=== PATIENT | female | born 1935 | race Caucasian/White ===

== ENCOUNTER 2016-09-11 14:07 | Inpatient (IN) | payer OTHER ==
[~2016-09-11] VITALS: Ht 172.7 cm; Wt 103.2 kg
[2016-09-11] MEDS ORDERED: ONDANSETRON 4 MG INJ IV STA (14:43)
[2016-09-11] MEDS ORDERED: morphine 4 MG/ML VIAL IV STA (14:43)
[2016-09-11] MEDS ORDERED: SOD CHLORIDE 0.9% 1,000 ML IV ONE (15:30)
[2016-09-11 15:34] LABS: ADD SCAN DIFF NO
[2016-09-11 15:35] LABS: BASOPHIL # 0.1 10^3/ul (0.0-0.1); BASOPHILS % 0.8 % (0.0-2.0); EOSINOPHILS # 0.1 10^3/ul (0.0-0.5); EOSINOPHILS % 1.4 % (0.0-7.0); HEMATOCRIT 35.4 % (37.0-47.0); LYMPHOCYTES # 0.7 10^3/ul (0.8-2.9); LYMPHOCYTES % 10.3 % (15.0-51.0); MEAN CORPUSCULAR HEMOGLOBIN 35.2 pg (29.0-33.0); MEAN CORPUSCULAR HGB CONC 33.9 g/dl (32.0-37.0); MEAN CORPUSCULAR VOLUME 103.8 fl (82.0-101.0); MEAN PLATELET VOLUME 10.3 fl (7.4-10.4); MONOCYTE # 0.6 10^3/ul (0.3-0.9); MONOCYTES % 9.5 % (0.0-11.0); NEUTROPHILS % 77.5 % (39.0-77.0); PLATELET COUNT 219 10^3/UL (140-415); RED BLOOD COUNT 3.41 10^6/ul (4.20-5.40); RED CELL DISTRIBUTION WIDTH 15.3 % (11.5-14.5); WHITE BLOOD COUNT 6.4 10^3/ul (4.8-10.8)
[2016-09-11 15:45] LABS: INR 0.97; PROTIME 12.9 Sec (12.2-14.2)
[2016-09-11 15:46] LABS: PARTIAL THROMBOPLASTIN TIME 50.7 Sec (25.0-35.0)
[2016-09-11 15:50] LABS: ALBUMIN 3.8 g/dl (3.3-4.9)
[2016-09-11 15:51] LABS: POTASSIUM 3.9 mmol/L (3.5-5.1)
[2016-09-11 15:53] LABS: ALBUMIN/GLOBULIN RATIO 1.26; BILIRUBIN,INDIRECT 0.3 mg/dl (0-1.1); BILIRUBIN,TOTAL 0.3 mg/dl (0.2-1.3); CALCIUM 9.5 mg/dl (8.4-10.2); CREATININE 0.92 mg/dl (0.44-1.00); TOTAL PROTEIN 6.8 g/dl (6.1-8.1)
--- NOTE | 2016-09-11 15:55 | RADRPT ---
PROCEDURE: Chest x-ray CLINICAL INDICATION: Shortness of breath TECHNIQUE: Chest single view COMPARISON: None FINDINGS: There is a right IJ Port-A-Cath. Mild cardiomegaly seen.. The pulmonary vessels are normal in perry luisa. The lungs are clear. The costophrenic angles are sharp. The visualized bony thorax is unrema rkable. IMPRESSION: No acute cardiopulmonary disease. Mild cardiomegaly Port-A-Cath RPTAT: HH .Nixon Garner MD, Date Time Electronically viewed and signed by .Nixon Garner MD, on 09/11/2016 15:55 .W/
--- NOTE | 2016-09-11 16:27 | ERA ---
ER Documentation Chief Complaint Date/Time DATE: 09/11/16 TIME: 16:16 Chief Complaint lab work request HPI 81-year-old woman recently diagnosed with non-Hodgkin's lymphoma presents with 2 weeks of constant daily diarrhea and feels dehydrated. Patient recently completed a round of antibiotics, she states after the first dose of chemotherapy back in June she developed a very bad urinary tract infection which ultimately required IV antibiotics and inpatient management. She saw her hematology oncologist Dr. Song today who recommended initiation of chemotherapy and treatment with CHOP therapy. She denies blood or mucus in her stools, no vomiting, no chest pain or shortness of breath, no headache or blurry vision. Patient denies genitourinary symptoms at this time. ROS All systems reviewed and are negative except as per history of present illness. Allergies Allergies: Coded Allergies: diazepam (Verified Allergy, Mild, RASHES, FACIAL SWELLING, 09/11/16) PMhx/Soc Chronic pain syndrome, anxiety, non-Hodgkin's lymphoma diagnosed in June status post 1 round of chemotherapy History of Surgery: Yes ( C SECTION X 2, HYSTERECTOMY) Anesthesia Reaction: No Hx Neurological Disorder: No Hx Respiratory Disorders: No Hx Cardiac Disorders: No Hx Psychiatric Problems: No Hx Miscellaneous Medical Probl: Yes (CA LYMPHOMA, OVARIAN CA, PRE DM, CHEMOTHERAPY) Hx Alcohol Use: No Hx Substance Use: No Hx Tobacco Use: No Smoking Status: Never smoker FmHx Family History: No diabetes Physical Exam Vitals Vital Signs Date Time Temp Pulse Resp B/P Pulse Ox O2 Delivery O2 Flow Rate FiO2 09/11/16 14:14 95.8 83 18 178/78 96 Physical Exam GENERAL: Well-developed, well-nourished, dehydrated, afebrile HEENT: Dry mucous membranes, no cervical lymphadenopathy appreciated, pink conjunctiva, no cervical spine tenderness or step-off deformities, no goiter, no jaundice or icterus, extraocular movements intact without pain. No submandibular induration, and no pharyngeal erythema NEURO: Alert and oriented 3, cranial nerves II through XII intact bilaterally, pupils equal round reactive to light, no focal deficits or facial asymmetry, sensation intact distally Strength 5/5 in upper and lower extremities bilaterally CARDIAC: Regular rate and rhythm, no murmurs rubs or gallops LUNGS: Clear bilaterally no wheezing crackles or stridor ABDOMEN: Soft nontender, no guarding, no rigidity, no rebound, no psoas sign no obturator sign. Normoactive bowel sounds SKIN: Warm and dry to touch, no abrasions, contusions, or hematomas, no lacerations, no ecchymosis, no target lesions, and without ulcers EXTREMITIES: No clubbing cyanosis or edema, calves are bilaterally symmetrical, no Homans sign, no popliteal cord sign. Distal pulses equal and bilateral PSYCH: Normal affect without agitation or irritability Result Diagram: 09/11/16 1500 09/11/16 1500 Results 24 hrs Laboratory Tests Test 09/11/16 15:00 White Blood Count 6.410^3/ul Red Blood Count 3.4110^6/ul Hemoglobin 12.0g/dl Hematocrit 35.4% Mean Corpuscular Volume 103.8fl Mean Corpuscular Hemoglobin 35.2pg Mean Corpuscular Hemoglobin Concent 33.9g/dl Red Cell Distribution Width 15.3% Platelet Count 18899^3/UL Mean Platelet Volume 10.3fl Neutrophils % 77.5% Lymphocytes % 10.3% Monocytes % 9.5% Eosinophils % 1.4% Basophils % 0.8% Nucleated Red Blood Cells % 0.0/100WBC Neutrophils # 5.010^3/ul Lymphocytes # 0.710^3/ul Monocytes # 0.610^3/ul Eosinophils # 0.110^3/ul Basophils # 0.110^3/ul Nucleated Red Blood Cells # 0.010^3/ul Prothrombin Time 12.9Sec Prothrombin Time Ratio 1.0 INR International Normalized Ratio 0.97 Activated Partial Thromboplast Time 50.7Sec Sodium Level 141mmol/L Potassium Level 3.9mmol/L Chloride Level 103mmol/L Carbon Dioxide Level 27mmol/L Anion Gap 15 Blood Urea Nitrogen 13mg/dl Creatinine 0.92mg/dl Glucose Level 117mg/dl Calcium Level 9.5mg/dl Total Bilirubin 0.3mg/dl Direct Bilirubin 0.00mg/dl Indirect Bilirubin 0.3mg/dl Aspartate Amino Transf (AST/SGOT) 23IU/L Alanine Aminotransferase (ALT/SGPT) 24IU/L Alkaline Phosphatase 102IU/L Lactate Dehydrogenase 430IU/L Total Protein 6.8g/dl Albumin 3.8g/dl Globulin 3.00g/dl Albumin/Globulin Ratio 1.26 Current Medications Medications (Trade) Dose Ordered Sig/Adilene Route PRN Reason Start Time Stop Time Status Last Admin Dose Admin Morphine Sulfate (morphine) 4 mg ONCE STAT IV 09/11/16 14:43 09/11/16 14:47 DC 09/11/16 15:03 Ondansetron HCl 4 mg 4 mg ONCE STAT IV 09/11/16 14:43 09/11/16 14:47 DC 09/11/16 15:03 Sodium Chloride (NS) 1,000 ml @ 1,000 mls/hr Q1H ONCE IV 09/11/16 15:30 09/11/16 16:29 09/11/16 15:25 Procedures/MDM IV line was established patient was placed on surveillance monitor rhythm strip revealed a sinus rhythm at about 80 bpm with upright P and T waves. Patient was afebrile. I administered 1 L normal saline intravenously and Zofran 4 mg IV. CBC and electrolytes were unremarkable, liver function tests were normal. Urinalysis has been ordered results are pending I will follow-up. If positive she will require treatment with IV antibiotics. One AP view of the chest performed, read by me reveals no acute infiltrates, normal mediastinum, sharp costophrenic and cardiac borders, no air under the diaphragm. Otherwise unremarkable chest x-ray. CT scan of the abdomen and pelvis has been ordered results are pending I will follow-up. C. difficile toxin has been ordered results are pending I will follow-up. Patient will be admitted to [facility] for continued medical management, IV hydration, and possible emergent chemotherapy. Departure Diagnosis: Primary Impression: Non Hodgkin's lymphoma Qualified Code: C85.91 - Non-Hodgkin lymphoma of lymph nodes of neck, unspecified non-Hodgkin lymphoma type Additional Impressions: Dehydration Infectious colitis Intractable diarrhea Condition: ADIS Gaming MD Sep 11, 2016 16:27
[2016-09-11] MEDS ORDERED: CEFTRIAXONE 1 GM/50 ML (PMX) 50 ML IVPB ONE (17:00)
[2016-09-11] MEDS ORDERED: DOCUSATE SODIUM 100 MG CAP PO PRN (17:00)
[2016-09-11] MEDS ORDERED: ONDANSETRON 4 MG INJ IV PRN (17:00)
[2016-09-11] MEDS ORDERED: BISACODYL 10 MG SUPP PR PRN (17:00)
[2016-09-11] MEDS ORDERED: NACL 0.9% 3 ML SYG IV SCH (17:00)
[2016-09-11] MEDS ORDERED: MAGNESIUM HYDROXIDE 30ML CUP PO PRN (17:00)
[2016-09-11] MEDS ORDERED: ATEN-51 PO (17:08)
[2016-09-11] MEDS ORDERED: ALLO300T2 PO (17:09)
[2016-09-11] MEDS ORDERED: LEVO175T6 PO (17:10)
[2016-09-11] MEDS ORDERED: PIOG15TA21 PO (17:11)
[2016-09-11] MEDS ORDERED: OMEP20CA16 PO (17:11)
[2016-09-11] MEDS ORDERED: FLUO40CA PO (17:12)
[2016-09-11] MEDS ORDERED: FLUO20CA22 PO (17:12)
[2016-09-11] MEDS ORDERED: SIMV40TA2 PO (17:15)
[2016-09-11] MEDS ORDERED: GLUCOSE GEL 15 GRAM TUBE BUCCAL PRN (18:00)
[2016-09-11] MEDS ORDERED: GLUCOSE GEL 15 GRAM TUBE PO PRN ×2 (18:00)
[2016-09-11] MEDS: INSULIN ASPART [NOVOLOG] 3 ML PEN SC SCH ×2 (18:00→21:00)
[2016-09-11] MEDS ORDERED: GLUCAGON 1 MG INJ IM PRN (18:00)
[2016-09-11] MEDS ORDERED: DEXTROSE 50% 50 ML SYRINGE IV PRN ×2 (18:00)
--- NOTE | 2016-09-11 18:21 | RADRPT ---
PROCEDURE: CT Abdomen and Pelvis without contrast. CLINICAL INDICATION: Abdominal and pelvic pain. Diarrhea for 2 weeks. TECHNIQUE: CT scan of the abdomen and pelvis without contrast was performed. Coronal and sagittal reformatted images were obtained from the axial source images. Images were reviewed on a high-[employer] PACS workstation. Total exam DLP is 1260.62 mGy-cm. CTDIvol is 21.23 mGy. One or more of the following dose reduction techniques were used: Automated exposure control, adjustment of the mA and/ or kV according to patient size, use of iterative reconstruction technique. COMPARISON: None. FINDINGS: There is mild bronchiectasis at both lung bases posteriorly. The lung bases are otherwise normal. There is no pleural effusion or pericardial effusion. The liver is cirrhotic with a nodular surface and relative enlargement of the left lobe. There is n o definite focal hepatic lesion. The gallbladder and bile ducts are normal. The spleen is mildly enlarged. There is no focal splenic lesion. Both adrenals are normal with no enlargement or mass. The pancreas is unremarkable with no mass or evidence of pancreatitis. There is no renal mass or hydronephrosis. There is no renal calculus or ureteral calculus. The abdominal aorta is not dilated. There is calcification in the aorta consistent with atheroscler osis. There is a retroaortic left renal vein, a normal variant. There is no retroperitoneal lymphadenopathy or mass. There is no pelvic lymphadenopathy or mass. The bladder and distal ureters are normal. The periappendiceal region is unremarkable with no evidence of appendicitis. There is diverticulosis of the sigmoid colon without evidence of diverticulitis. The bowel and mese ntery are otherwise normal. There is no free fluid or free gas. There are degenerative changes of the spine. There is no acute fracture or lytic lesion. There are old compression fractures of superior endplate of T12, L1, and L3. IMPRESSION: 1. Mild bronchiectasis at the lung bases posteriorly. 2. Cirrhotic liver. 3. Mild splenomegaly. 4. Atherosclerosis. 5. Retroaortic left renal vein, a normal variant. 6. Diverticulosis of the sigmoid colon with no evidence of diverticulitis. 7. Degenerative changes of the spine. 8. Old compression fractures of T12, L1, and L3 vertebrae. 9. No other significant abnormality. RPTAT: QQ .Anselmo Lombardi MD, MD Date Time Electronically viewed and signed by .Anselmo Lombardi MD, on 09/11/2016 18:20 .R/
[2016-09-11] MEDS: morphine 2 MG INJ IV PRN (18:43)
[2016-09-11] MEDS: SOD CHLORIDE 0.9% 1,000 ML IV SCH (18:49)
[2016-09-11] MEDS ORDERED: ATENOLOL 25 MG TAB PO ONE (19:30)
[2016-09-11 19:31] VITALS: TEMP 98.3
[2016-09-11 20:54] VITALS: BP 180/77; RESP 20
--- NOTE | 2016-09-11 20:57 | HP ---
DATE OF ADMISSION: 09/11/2016 PRIMARY CARE ONCOLOGIST: Dr. Hellen Song. CHIEF COMPLAINT ON ADMISSION: Generalized weakness and diarrhea. HISTORY OF PRESENT ILLNESS: This is a 81-year-old female apparently with history of non-Hodgkin lymphoma who is currently on chemotherapy, but behind on chemotherapy, and also history of recurrent UTIs. For the past few months, she has been on multiple antibiotics apparently and seems to have resolved as of now. Also has been having diarrhea intermittently for the past couple of months. The patient reports that she has been using Imodium and her last bowel movement was 24 hours ago, was definitely more formed than before. She denies any nausea, vomiting, hematemesis, melena, or hematochezia, but she does report decreased appetite over the past few weeks. Her p.o. intake has decreased, but she does force herself to eat. She has been afebrile. She denies any specific suprapubic abdominal pain or generalized abdominal pain; however, she does describe generalized pain. She cannot really pinpoint exactly when, where she has been taking [place] as needed. Apparently she had an episode of fall yesterday, according to the daughter at the bedside. It is fairly difficult to get a history from the patient, as I am being interrupted constantly by the daughter at the bedside who is very impatient, refused to give information, and keeps repeating that it is in the chart already or keeps repeating that the patient is ill and needs to be admitted. When I ask her specific symptoms, she responds with a derogatory term and just asks for me to go look the chart up or keeps repeating that the patient is ill. The patient herself is very pleasant. She seems to be a little forgetful, but able to give most of the information in an accurate matter. At this point, she is on IV fluids. Her labs are fairly stable and within normal. She does not seem to be having an acute infection currently, but given her previous multiple urinary tract infections and these episodes of diarrhea, she will have her stool checked along with a UA and urine culture. CAT scan of the abdomen and pelvis has been ordered and is still pending. I have discussed this patient with Dr. Song who is familiar with them. Apparently her last chemotherapy had to be delayed due to episodes of urinary tract infection requiring IV antibiotics. At this point, she had a planned chemotherapeutic dose due and it is being debated at this point if she needs it inpatient versus outpatient. Apparently, with her last chemotherapy she had an episode of confusion or some side effects reported then, although the patient does not remember. She is being admitted to a medical/surgical bed with hematology evaluation in the morning. If it seems like she needs chemotherapy urgently, at that point, she may end up having it inpatient. If not, she will be hydrated overnight and discharged home. ALLERGIES: VALIUM. PAST MEDICAL HISTORY: Significant for: 1. Non-Hodgkin's lymphoma, apparently according to Dr. Song, fairly aggressive. 2. Previous history of ovarian cancer years ago, according to patient. 3. Hypothyroidism. 4. Hyperlipidemia. 5. Episode of recurrent urinary tract infection. 6. Hypertension. 7. Diabetes mellitus. 8. Major depressive disorder versus anxiety disorder. PAST SURGICAL HISTORY: Status post Port-A-Cath placement. REVIEW OF SYSTEMS: Difficult to obtain from the patient or the patient's family. She is very reluctant to give any information. SOCIAL HISTORY: The patient lives with family. Has no history of smoking or drinking. OUTPATIENT MEDICATIONS: 1. Atenolol 25 mg p.o. daily. 2. Zocor 40 mg p.o. at bedtime. 3. Fluoxetine 60 mg p.o. daily. 4. Omeprazole 20 mg p.o. daily. 5. Levothyroxine 175 mcg p.o. daily. 6. Pioglitazone 15 mg p.o. daily. 7. Allopurinol 300 mg p.o. daily. 8. Of note, the patient has been on multiple series of antibiotics before for apparently recurrent urinary tract infection. PHYSICAL EXAMINATION: VITAL SIGNS: Temperature is 98.5, heart rate of 83, respiratory rate 18, blood pressure 178/78. The patient is saturating 96% on room air. GENERAL: She is alert and oriented x4. She is in no acute distress. She is morbidly obese. HEENT: Pupils are equally round and reactive to light. Extraocular muscles are intact. Anicteric sclerae. NECK: No JVD, no thyromegaly noted. HEART: Regular rate and rhythm. No murmur, rubs, or gallops. LUNGS: Clear to auscultation bilaterally. ABDOMEN: Soft, nontender, nondistended. Bowel sounds are present. I did palpate fairly deeply. The patient did not complain of pain. EXTREMITIES: No edema, clubbing, or cyanosis, but the patient complained of numbness of her feet. NEUROLOGIC: The patient's complaint of generalized weakness at this point 4/5 muscle strength and numbness of her feet bilaterally. She also complains of pain on her left upper extremity, status post fall, motor strength is 4+/5. Gait will be tested with physical therapy in a.m. LABORATORY DATA: White blood cell count 6.4, hemoglobin 12.0, hematocrit 35.4, platelet count of 219. Chemistry with a sodium of 141, potassium 3.9, chloride 102, bicarbonate 27, BUN 13, creatinine 0.93, glucose 117, calcium 9.5. AST 23 , ALT 24, alkaline phosphatase 102. LDH is 430. Total protein 6.8, albumin 3.8. INR is 0.97, PT 12.9, PTT 50.7. Urinalysis is still pending. C. diff toxin is pending. RADIOLOGICAL DATA: 1. Chest x-ray shows no acute cardiopulmonary disease, mild cardiomegaly, and a Port-A-Cath in place. 2. CAT scan of the abdomen and pelvis is still pending. ASSESSMENT AND PLAN: This is a 81-year-old female with: 1. Reported dehydration and diarrhea for 2 weeks. When I talked to the patient , at this point, she seems to be pointing and reporting that her diarrhea is resolving and is more formed stools. She does not have any other alarming symptoms as abdominal pain. White count is within normal. She is tolerating p.o., but has decreased appetite. Will continue IV fluids overnight with reevaluation in the morning. Follow up stool Clostridium difficile. Follow up CAT scan of the abdomen and pelvis. I have placed her on low-cholesterol, low- fat diet overnight. 2. Non-Hodgkin lymphoma, according to pete Velazco. The patient is due for chemotherapy at this point. She will evaluate the patient in the a.m. and decide if she needs chemotherapy at this time versus later on as an outpatient. 3. Hyperlipidemia. Check fasting lipid panel. Continue statin therapy. 4. Hypothyroidism. Check TSH and free T4. Continue Synthroid. 5. Major depressive disorder versus other psychiatric illness. Continue fluoxetine. 6. Hypertension. Continue atenolol. 7. Diabetes mellitus. The patient is on Actos. Will check a hemoglobin A1c in a.m. and sliding scale insulin. Hold Actos during this admission. 8. Prophylaxis. Lovenox for deep vein thrombosis prophylaxis and Protonix for gastrointestinal prophylaxis. DISPOSITION: The patient is admitted on medical surgical bed for now with possible discharge in the next 24 hours if there is no plan for further treatment and CAT scan is within normal. However, if it seems like the patient needs to start chemotherapy inpatient, we will reevaluate her admission at that point. Dictated By: JESUS DE LA ROSA/HOLLIS Conf#: [id number] DID#: [id number] MTDD
[2016-09-11] MEDS: ATORVASTATIN 20 MG TAB PO SCH (21:00)
[2016-09-11] MEDS: HYDROCODONE/APAP (5/325) TAB PO PRN (22:19)
[2016-09-11 22:30] VITALS: BP 117/56; PULSE 81; RESP 16
[2016-09-12] MEDS: SOD CHLORIDE 0.9% 1,000 ML IV SCH ×3 (02:36→21:30)
[2016-09-12 05:13] LABS: ADD SCAN DIFF NO
[2016-09-12 05:24] LABS: BASOPHILS % 0.6 % (0.0-2.0); EOSINOPHILS # 0.1 10^3/ul (0.0-0.5); EOSINOPHILS % 1.8 % (0.0-7.0); HEMATOCRIT 34.8 % (37.0-47.0); HEMOGLOBIN 11.6 g/dl (12.0-16.0); LYMPHOCYTES # 0.7 10^3/ul (0.8-2.9); LYMPHOCYTES % 12.7 % (15.0-51.0); MEAN CORPUSCULAR HEMOGLOBIN 35.4 pg (29.0-33.0); MEAN CORPUSCULAR HGB CONC 33.3 g/dl (32.0-37.0); MEAN CORPUSCULAR VOLUME 106.1 fl (82.0-101.0); MONOCYTE # 0.5 10^3/ul (0.3-0.9); MONOCYTES % 9.2 % (0.0-11.0); NEUTROPHIL # 3.9 10^3/ul (1.6-7.5); NEUTROPHILS % 75.3 % (39.0-77.0); PLATELET COUNT 175 10^3/UL (140-415); RED BLOOD COUNT 3.28 10^6/ul (4.20-5.40); RED CELL DISTRIBUTION WIDTH 15.3 % (11.5-14.5); WHITE BLOOD COUNT 5.1 10^3/ul (4.8-10.8)
[2016-09-12] MEDS: LEVOTHYROXINE 175 MCG TAB PO SCH (06:26)
[2016-09-12] MEDS: PANTOPRAZOLE (EC) 40 MG TAB PO SCH (06:26)
[2016-09-12] MEDS: HYDROCODONE/APAP (5/325) TAB PO PRN ×3 (06:38→21:29)
[2016-09-12 06:41] VITALS: Ht 172.7 cm; Wt 103.2 kg
[2016-09-12 07:35] LABS: ALBUMIN 3.8 g/dl (3.3-4.9)
[2016-09-12 07:36] LABS: POTASSIUM 3.6 mmol/L (3.5-5.1)
[2016-09-12 07:38] LABS: BILIRUBIN,INDIRECT 0.2 mg/dl (0-1.1); BILIRUBIN,TOTAL 0.2 mg/dl (0.2-1.3); CREATININE 0.88 mg/dl (0.44-1.00)
[2016-09-12 07:39] LABS: ALBUMIN/GLOBULIN RATIO 1.31; PHOSPHORUS 3.7 mg/dl (2.5-4.9); TOTAL PROTEIN 6.7 g/dl (6.1-8.1)
[2016-09-12 07:40] LABS: CHOL/HDL RATIO 2.2 RATIO; MAGNESIUM 1.3 mg/dl (1.7-2.5)
[2016-09-12] MEDS: INSULIN ASPART [NOVOLOG] 3 ML PEN SC SCH ×4 (07:50→21:00)
[2016-09-12] MEDS ORDERED: ENOXAPARIN 40 MG/0.4 ML SYG SC SCH (09:00)
[2016-09-12 09:11] VITALS: BP 135/69; RESP 18
[2016-09-12] MEDS: ATENOLOL 25 MG TAB PO SCH (10:02)
[2016-09-12] MEDS: FLUOXETINE 20 MG CAP PO SCH (10:03)
[2016-09-12] MEDS: ALLOPURINOL 300 MG TAB PO SCH (10:05)
--- NOTE | 2016-09-12 10:52 | PN ---
Date/Time of Note Date/Time of Note DATE: 09/12/16 TIME: 10:25 Assessment/Plan VTE Prophylaxis VTE Prophylaxis Intervention: LMWH Lines/Catheters IV Catheter Type (from Nrs): Peripheral IV Assessment/Plan Assessment/Plan 81-year-old female: 1. Dehydration and diarrhea for 2 weeks per patient. No diarrhea so far, stool c diff pending Tolerating po and remains stable CAT scan of the abdomen and pelvis wihth cirrhosis and mild splenomegaly, otherwise no acute findings 2. Non-Hodgkin lymphoma, according to Dr. Song, aggressive. The patient is due for chemotherapy at this point. Planning for chemo so far with expected stay of 2 to 3 days 3. Hyperlipidemia. Continue statin therapy. 4. Hypothyroidism. Continue Synthroid. 5. Major depressive disorder versus other psychiatric illness. Continue fluoxetine. 6. Hypertension. Continue atenolol. 7. Diabetes mellitus. A1c pending and continue sliding scale insulin for now. Hold Actos during this admission. Prophylaxis. Lovenox for deep vein thrombosis prophylaxis and Protonix for gastrointestinal prophylaxis. DISPOSITION: To start chemotherapy per Dr Song, we will reevaluate her admission if otherwise. Subjective 24 Hr Interval Summary Free Text/Dictation Patient apparently using a small wheelchair at home, chronic weakness PT eval today ? Chemo Exam/Review of Systems Vital Signs Vitals Vital Signs Date Time Temp Pulse Resp B/P Pulse Ox O2 Delivery O2 Flow Rate FiO2 09/12/16 09:11 97.6 87 18 135/69 90 09/11/16 19:31 Room Air Intake and Output 09/11/16 09/11/16 09/12/16 15:00 23:00 07:00 Intake Total 1450 ml Balance 1450 ml Exam Constitutional: alert, obese, oriented, well developed Respiratory: clear to auscultation, normal air movement Cardiovascular: nl pulses, regular rate and rhythm Gastrointestinal: non-tender, soft Musculoskeletal: nl extremities to inspection Extremities: normal pulses, other (no edema, clubbing or cyanosis ) 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8 Basophils % 0.8 0.6 Nucleated Red Blood Cells % 0.0 0.0 Neutrophils # 5.0 3.9 Lymphocytes # 0.7 L 0.7 L Monocytes # 0.6 0.5 Eosinophils # 0.1 0.1 Basophils # 0.1 0.0 Nucleated Red Blood Cells # 0.0 0.0 Prothrombin Time 12.9 Prothrombin Time Ratio 1.0 INR International Normalized Ratio 0.97 Activated Partial Thromboplast Time 50.7 H Sodium Level 141 140 Potassium Level 3.9 3.6 Chloride Level 103 105 Carbon Dioxide Level 27 26 Anion Gap 15 13 Blood Urea Nitrogen 13 10 Creatinine 0.92 0.88 Glucose Level 117 107 Calcium Level 9.5 9.0 Total Bilirubin 0.3 0.2 Direct Bilirubin 0.00 0.00 Indirect Bilirubin 0.3 0.2 Aspartate Amino Transf (AST/SGOT) 23 24 Alanine Aminotransferase (ALT/SGPT) 24 25 Alkaline Phosphatase 102 97 Lactate Dehydrogenase 556 Total Protein 6.8 6.7 Albumin 3.8 3.8 Globulin 3.00 2.90 Albumin/Globulin Ratio 1.26 1.31 Thyroid Stimulating Hormone (TSH) 1.040 Free Thyroxine 1.96 H Bedside Glucose 113 111 Phosphorus Level 3.7 Magnesium Level 1.3 L Triglycerides Level 164 H Cholesterol Level 142 LDL Cholesterol, Calculated 46 HDL Cholesterol 63 Cholesterol/HDL Ratio 2.2 Medications Medications Current Medications Sodium Chloride (NS) 1,000 ml @ 100 mls/hr Q10H IV Last administered on t 02:36; Admin Dose 100 MLS/HR; Start 09/11/16 at 16:52 Ondansetron HCl (Zofran Inj) 4 mg Q6H PRN IV NAUSEA AND/OR VOMITING; Start at 17:00 Acetaminophen (Tylenol Tab) 650 mg Q6H PRN PO PAIN LEVEL 1-3 OR FEVER; Start at 17:00 Acetaminophen/ Hydrocodone Bitart ([place] (5/325)) 1 tab Q6H PRN PO MODERATE PAIN LEVEL 4-6; Start 09/11/16 at 17:00 Acetaminophen/ Hydrocodone Bitart ([place] (5/325)) 2 tab Q6H PRN PO SEVERE PAIN LEVEL 7-10 Last administered on 09/12/16 06:38; Admin Dose 2 TAB; Start at 17:00 Morphine Sulfate (morphine) 2 mg Q4H PRN IV SEVERE PAIN LEVEL 7-10 Last administered on 09/11/16 18:43; Admin Dose 2 MG; Start 09/11/16 at 17:00 Docusate Sodium (Colace) 100 mg Q12H PRN PO CONSTIPATION Last administered on 22:18; Admin Dose 100 MG; Start 09/11/16 at 17:00 Magnesium Hydroxide (Milk Of Mag) 30 ml DAILY PRN PO CONSTIPATION; Start at 17:00 Bisacodyl (Dulcolax Supp) 10 mg DAILY PRN [place] CONSTIPATION; Start 09/11/16 at 17 :00 Pantoprazole (Protonix Tab) 40 mg DAILY@06 PO Last administered on 09/12/16 06 :26; Admin Dose 40 MG; Start 09/12/16 at 06:00 Enoxaparin Sodium (Lovenox) 40 mg DAILY SC Last administered on 09/12/16 10:01 ; Admin Dose 40 MG; Start 09/12/16 at 09:00 Allopurinol (Zyloprim) 300 mg DAILY PO Last administered on 09/12/16 10:05; Admin Dose 300 MG; Start 09/12/16 at 09:00 Atenolol (Tenormin) 25 mg DAILY PO Last administered on 09/12/16 10:02; Admin Dose 25 MG; Start 09/12/16 at 09:00 Atorvastatin Calcium (Lipitor) 20 mg DAILY@21 PO ; Start 09/11/16 at 21:00 Fluoxetine HCl (Prozac) 60 mg DAILY PO Last administered on 09/12/16 10:03; Admin Dose 60 MG; Start 09/12/16 at 09:00 Miscellaneous Information 1 ea NOTE XX ; Start 09/11/16 at 18:00 Glucose (Glutose) 15 gm Q15M PRN PO DECREASED GLUCOSE; Start 09/11/16 at 18:00 Glucose (Glutose) 22.5 gm Q15M PRN PO DECREASED GLUCOSE; Start 09/11/16 at 18: 00 Dextrose (D50w Syringe) 25 ml Q15M PRN IV DECREASED GLUCOSE; Start 09/11/16 at 18:00 Dextrose (D50w Syringe) 50 ml Q15M PRN IV DECREASED GLUCOSE; Start 09/11/16 at 18:00 Glucagon (Glucagen) 1 mg Q15M PRN IM DECREASED GLUCOSE; Start 09/11/16 at 18:00 Glucose (Glutose) 15 gm Q15M PRN BUCCAL DECREASED GLUCOSE; Start 09/11/16 at 18 :00 Influenza Virus Vaccine (Fluzone) 0.5 ml ONCE ONCE IM* ; Start 09/13/16 at 09:00 ; Stop 09/13/16 at 09:01 Procedures Procedures PROCEDURE: CT Abdomen and Pelvis without contrast. CLINICAL INDICATION: Abdominal and pelvic pain. Diarrhea for 2 weeks. TECHNIQUE: CT scan of the abdomen and pelvis without contrast was performed. Coronal and sagittal reformatted images were obtained from the axial source images. Images were reviewed on a high-resolution PACS workstation. Total exam DLP is 1260.62 mGy-cm. CTDIvol is 21.23 mGy. One or more of the following dose reduction techniques were used: Automated exposure control, adjustment of the mA and/or kV according to patient size, use of iterative reconstruction technique. COMPARISON: None. FINDINGS: There is mild bronchiectasis at both lung bases posteriorly. The lung bases are otherwise normal. There is no pleural effusion or pericardial effusion. The liver is cirrhotic with a nodular surface and relative enlargement of the left lobe. There is no definite focal hepatic lesion. The gallbladder and bile ducts are normal. The spleen is mildly enlarged. There is no focal splenic lesion. Both adrenals are normal with no enlargement or mass. The pancreas is unremarkable with no mass or evidence of pancreatitis. There is no renal mass or hydronephrosis. There is no renal calculus or ureteral calculus. The abdominal aorta is not dilated. There is calcification in the aorta consistent with atherosclerosis. There is a retroaortic left renal vein, a normal variant. There is no retroperitoneal lymphadenopathy or mass. There is no pelvic lymphadenopathy or mass. The bladder and distal ureters are normal. The periappendiceal region is unremarkable with no evidence of appendicitis. There is diverticulosis of the sigmoid colon without evidence of diverticulitis. The bowel and mesentery are otherwise normal. There is no free fluid or free gas. There are degenerative changes of the spine. There is no acute fracture or lytic lesion. There are old compression fractures of superior endplate of T12, L1, and L3. IMPRESSION: 1. Mild bronchiectasis at the lung bases posteriorly. 2. Cirrhotic liver. 3. Mild splenomegaly. 4. Atherosclerosis. 5. Retroaortic left renal vein, a normal variant. 6. Diverticulosis of the sigmoid colon with no evidence of diverticulitis. 7. Degenerative changes of the spine. 8. Old compression fractures of T12, L1, and L3 vertebrae. 9. No other significant abnormality. RPTAT: QQ JESUS EUBANKS Sep 12, 2016 10:36
[2016-09-12] MEDS ORDERED: ALBUTEROL/IPRATROPIUM (NEB) 3 ML AMP HHN PRN (11:00)
[2016-09-12] MEDS ORDERED: MAGNESIUM SULFATE 2 GM/50 ML 50 ML IVPB SCH (11:30)
[2016-09-12] MEDS: DIPHENHYDRAMINE 25 MG CAP PO PRN (13:11)
--- NOTE | 2016-09-12 14:50 | CONS ---
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 Pt now presents with weakness, body pain and shortness of breath that is most likely secondary to her highly proliferative lymphoma that is currently progressing. Given that she is due for her chemotherapy, we will initiate her next dose of chemotherapy at this time in attempts to control this highly proliferative disease. # DLBCL -Pt to start Rituxan + Bendamustine to be given when meds arrive -Rituxan 750 mg IV day 1 -Bendamustine 240 mg IV day1 and day 2. -Rituxan may start first and bendamustine can be given the next day if Rituxan is available earlier -will check Hep panel as patient will be getting Rituxan. need to prevent hep B reactivation # Tumor lysis ppx given patient has a highly proliferative lymphoma -start allopurinol 300mg q dy -continue with NS hydration #Pain -[place] ok as needed for pain # Depression -cont Prozac Approximately 40 min were spent at patient's bedside and in coordination of her care Problems: Consultation Date/Type/Reason Admit Date/Time Sep 11, 2016 at 16:03 Date of Consultation: Sep 12, 2016 Type of Consultation: hematology Reason for Consultation diffuse large b cell lymphoma Referring Provider: JESUS EUBANKS Hx of Present Illness 81 yo who first began to feel neck lymphadenopathy on the left side of her neck in 03/2016. PT became bedridden with profound weakness. 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 PT has since started chemotherapy in late July where she had a moderate reaction to Rituxan with shortness of breath, chills and mild fevers. She received Rituxan and Bendamustine at that time. She was supposed to start chemotherapy in our office , but now she presents to the [facility] ER with Shortness of breath, severe body pains and worsening weakness. She is currently over due from her chemotherapy and feels this is the cause of her symptoms. Constitutional: chills, poor po Eyes: no complaints ENT: no complaints Respiratory: shortness of breath Cardiovascular: no complaints Gastrointestinal: no complaints Musculoskeletal: back pain, bone/joint pain Skin: no complaints Past Medical History Hypertension Depression Diabetes Mellitus Osteoarthritis Obesity Ovaria Cancer Hypothyroidism Hypercholesterolemia Past Surgical History Ex lap ALEXANDRE BSO Cosmetic Surgery on Face Family History Significant Family History: no pertinent family hx Social History Alcohol Use: none Smoking Status: Former smoker Drug Use: none Exam/Review of Systems Vital Signs Vitals Vital Signs Date Time Temp Pulse Resp B/P Pulse Ox O2 Delivery O2 Flow Rate FiO2 09/12/16 11:55 75 18 97 09/12/16 09:11 97.6 135/69 09/11/16 19:31 Room Air Intake and Output 09/11/16 09/11/16 09/12/16 15:00 23:00 07:00 Intake Total 1450 ml Balance 1450 ml Exam Constitutional: distress, frail Psych: anxiety, depression Head: normocephalic Eyes: nl conjunctiva ENMT: nl external ears & nose Neck: supple Respiratory: clear to auscultation, normal air movement Cardiovascular: regular rate and rhythm Gastrointestinal: soft Musculoskeletal: nl extremities to inspection Results Result Diagram: 09/12/16 0440 09/12/16 0440 Results 24 hrs Laboratory Tests Test 09/11/16 15:00 09/11/16 21:33 09/12/16 04:40 09/12/16 07:54 White Blood Count 6.4 5.1 # Red Blood Count 3.41 L 3.28 L Hemoglobin 12.0 11.6 L Hematocrit 35.4 L 34.8 L Mean Corpuscular Volume 103.8 H 106.1 H Mean Corpuscular Hemoglobin 35.2 H 35.4 H Mean Corpuscular Hemoglobin Concent 33.9 33.3 Red Cell Distribution Width 15.3 H 15.3 H Platelet Count 219 175 # Mean Platelet Volume 10.3 10.0 Neutrophils % 77.5 H 75.3 Lymphocytes % 10.3 L 12.7 L Monocytes % 9.5 9.2 Eosinophils % 1.4 1.8 Basophils % 0.8 0.6 Nucleated Red Blood Cells % 0.0 0.0 Neutrophils # 5.0 3.9 Lymphocytes # 0.7 L 0.7 L Monocytes # 0.6 0.5 Eosinophils # 0.1 0.1 Basophils # 0.1 0.0 Nucleated Red Blood Cells # 0.0 0.0 Prothrombin Time 12.9 Prothrombin Time Ratio 1.0 INR International Normalized Ratio 0.97 Activated Partial Thromboplast Time 50.7 H Sodium Level 141 140 Potassium Level 3.9 3.6 Chloride Level 103 105 Carbon Dioxide Level 27 26 Anion Gap 15 13 Blood Urea Nitrogen 13 10 Creatinine 0.92 0.88 Glucose Level 117 107 Calcium Level 9.5 9.0 Total Bilirubin 0.3 0.2 Direct Bilirubin 0.00 0.00 Indirect Bilirubin 0.3 0.2 Aspartate Amino Transf (AST/SGOT) 23 24 Alanine Aminotransferase (ALT/SGPT) 24 25 Alkaline Phosphatase 102 97 Lactate Dehydrogenase 556 Total Protein 6.8 6.7 Albumin 3.8 3.8 Globulin 3.00 2.90 Albumin/Globulin Ratio 1.26 1.31 Thyroid Stimulating Hormone (TSH) 1.040 Free Thyroxine 1.96 H Bedside Glucose 113 111 Hemoglobin A1c 5.3 Phosphorus Level 3.7 Magnesium Level 1.3 L Triglycerides Level 164 H Cholesterol Level 142 LDL Cholesterol, Calculated 46 HDL Cholesterol 63 Cholesterol/HDL Ratio 2.2 Test 09/12/16 12:05 Bedside Glucose 118 Medications Medications Current Medications Sodium Chloride (NS) 1,000 ml @ 100 mls/hr Q10H IV Last administered on 13:10; Admin Dose 100 MLS/HR; Start 09/11/16 at 16:52 Ondansetron HCl (Zofran Inj) 4 mg Q6H PRN IV NAUSEA AND/OR VOMITING; Start at 17:00 Acetaminophen (Tylenol Tab) 650 mg Q6H PRN PO PAIN LEVEL 1-3 OR FEVER; Start at 17:00 Acetaminophen/ Hydrocodone Bitart ([place] (5/325)) 1 tab Q6H PRN PO MODERATE PAIN LEVEL 4-6; Start 09/11/16 at 17:00 Acetaminophen/ Hydrocodone Bitart ([place] (5/325)) 2 tab Q6H PRN PO SEVERE PAIN LEVEL 7-10 Last administered on 09/12/16 06:38; Admin Dose 2 TAB; Start at 17:00 Morphine Sulfate (morphine) 2 mg Q4H PRN IV SEVERE PAIN LEVEL 7-10 Last administered on 09/11/16 18:43; Admin Dose 2 MG; Start 09/11/16 at 17:00 Docusate Sodium (Colace) 100 mg Q12H PRN PO CONSTIPATION Last administered on 22:18; Admin Dose 100 MG; Start 09/11/16 at 17:00 Magnesium Hydroxide (Milk Of Mag) 30 ml DAILY PRN PO CONSTIPATION; Start at 17:00 Bisacodyl (Dulcolax Supp) 10 mg DAILY PRN [place] CONSTIPATION; Start 09/11/16 at 17 :00 Pantoprazole (Protonix Tab) 40 mg DAILY@06 PO Last administered on 09/12/16 06 :26; Admin Dose 40 MG; Start 09/12/16 at 06:00 Allopurinol (Zyloprim) 300 mg DAILY PO Last administered on 09/12/16 10:05; Admin Dose 300 MG; Start 09/12/16 at 09:00 Atenolol (Tenormin) 25 mg DAILY PO Last administered on 09/12/16 10:02; Admin Dose 25 MG; Start 09/12/16 at 09:00 Atorvastatin Calcium (Lipitor) 20 mg DAILY@21 PO ; Start 09/11/16 at 21:00 Fluoxetine HCl (Prozac) 60 mg DAILY PO Last administered on 09/12/16 10:03; Admin Dose 60 MG; Start 09/12/16 at 09:00 Miscellaneous Information 1 ea NOTE XX ; Start 09/11/16 at 18:00 Glucose (Glutose) 15 gm Q15M PRN PO DECREASED GLUCOSE; Start 09/11/16 at 18:00 Glucose (Glutose) 22.5 gm Q15M PRN PO DECREASED GLUCOSE; Start 09/11/16 at 18: 00 Dextrose (D50w Syringe) 25 ml Q15M PRN IV DECREASED GLUCOSE; Start 09/11/16 at 18:00 Dextrose (D50w Syringe) 50 ml Q15M PRN IV DECREASED GLUCOSE; Start 09/11/16 at 18:00 Glucagon (Glucagen) 1 mg Q15M PRN IM DECREASED GLUCOSE; Start 09/11/16 at 18:00 Glucose (Glutose) 15 gm Q15M PRN BUCCAL DECREASED GLUCOSE; Start 09/11/16 at 18 :00 Influenza Virus Vaccine (Fluzone) 0.5 ml ONCE ONCE IM* ; Start 09/13/16 at 09:00 ; Stop 09/13/16 at 09:01 Diphenhydramine HCl (Benadryl) 25 mg Q6H PRN PO ITCHING Last administered on t 13:11; Admin Dose 25 MG; Start 09/12/16 at 12:56 ROBERT DE LEÓN M.D. Sep 12, 2016 14:48
[2016-09-12] MEDS ORDERED: METHYLPREDNISOLONE 125 MG INJ IV PRN (17:30)
[2016-09-12] MEDS ORDERED: ONDANSETRON INJ 8 MG in SOD CHLORIDE 0.9% 50 ML IV PRN (17:30)
[2016-09-12] MEDS ORDERED: DIPHENHYDRAMINE 50 MG INJ IV PRN (17:30)
[2016-09-12] MEDS ORDERED: MEPERIDINE 50 MG INJ IV PRN (17:30)
[2016-09-12 19:59] VITALS: BP 112/72; RESP 20
[2016-09-12] MEDS: ATORVASTATIN 20 MG TAB PO SCH (20:13)
[2016-09-12] MEDS: morphine 2 MG INJ IV PRN (20:20)
[2016-09-13 05:02] LABS: ADD SCAN DIFF NO
[2016-09-13] MEDS: PANTOPRAZOLE (EC) 40 MG TAB PO SCH (05:12)
[2016-09-13] MEDS: LEVOTHYROXINE 175 MCG TAB PO SCH (05:12)
[2016-09-13] MEDS: HYDROCODONE/APAP (5/325) TAB PO PRN ×2 (05:13→17:48)
[2016-09-13] MEDS: SOD CHLORIDE 0.9% 1,000 ML IV SCH ×2 (05:13→20:51)
[2016-09-13 05:20] LABS: ABNORMAL IP MESSAGE 1; BASOPHILS % 0.4 % (0.0-2.0); EOSINOPHILS # 0.1 10^3/ul (0.0-0.5); EOSINOPHILS % 2.5 % (0.0-7.0); HEMATOCRIT 32.7 % (37.0-47.0); HEMOGLOBIN 10.9 g/dl (12.0-16.0); LYMPHOCYTES # 0.2 10^3/ul (0.8-2.9); LYMPHOCYTES % 3.2 % (15.0-51.0); MEAN CORPUSCULAR HGB CONC 33.3 g/dl (32.0-37.0); MEAN CORPUSCULAR VOLUME 105.1 fl (82.0-101.0); MONOCYTE # 0.2 10^3/ul (0.3-0.9); MONOCYTES % 3.2 % (0.0-11.0); NEUTROPHIL # 4.7 10^3/ul (1.6-7.5); NEUTROPHILS % 90.3 % (39.0-77.0); PLATELET COUNT 182 10^3/UL (140-415); RED BLOOD COUNT 3.11 10^6/ul (4.20-5.40); RED CELL DISTRIBUTION WIDTH 15.4 % (11.5-14.5); WHITE BLOOD COUNT 5.3 10^3/ul (4.8-10.8)
[2016-09-13 05:28] LABS: MAGNESIUM 1.5 mg/dl (1.7-2.5); PHOSPHORUS 3.5 mg/dl (2.5-4.9)
[2016-09-13 05:29] LABS: POTASSIUM 3.7 mmol/L (3.5-5.1)
[2016-09-13 05:32] LABS: CREATININE 0.87 mg/dl (0.44-1.00)
[2016-09-13 05:33] LABS: CALCIUM 8.8 mg/dl (8.4-10.2)
[2016-09-13 07:00] VITALS: BP 168/91; RESP 20
[2016-09-13] MEDS: INSULIN ASPART [NOVOLOG] 3 ML PEN SC SCH ×4 (07:50→21:00)
[2016-09-13] MEDS ORDERED: INFLUENZA VIRUS VACCINE 0.5 ML (DISPENSING) IM* ONE (09:00)
--- NOTE | 2016-09-13 09:51 | CONS ---
Date/Time of Note Date/Time of Note DATE: 09/13/16 TIME: 09:50 Assessment/Plan Assessment/Plan Chief Complaint/Hosp Course 81 yo female with STAGE IIIB DLBCL with double expression of BCL 6 and BCL2 non germinal center subtype with a high KI67 of 98% s/p cycle 1 of Rituxan - Bendamustine given late July bu another oncologist. Pt now presents with weakness, body pain and shortness of breath that is most likely secondary to her highly proliferative lymphoma that is currently progressing. Given that she is due for her chemotherapy, we will initiate her next dose of chemotherapy at this time in attempts to control this highly proliferative disease. # DLBCL -Pt to start Rituxan + Bendamustine to be given when meds arrive -Rituxan 750 mg IV day 1 -Bendamustine 240 mg IV day1 and day 2. -chemotherapy to start today -will check Hep panel as patient will be getting Rituxan. need to prevent hep B reactivation # Tumor lysis ppx given patient has a highly proliferative lymphoma -start allopurinol 300mg q dy -continue with NS hydration #Pain -[place] ok as needed for pain # Depression -cont Prozac Approximately 40 min were spent at patient's bedside and in coordination of her care Problems: Consultation Date/Type/Reason Admit Date/Time Sep 11, 2016 at 16:03 Initial Consult Date 09/12/16 Type of Consultation: hematology Referring Provider: JESUS EUBANKS 24 HR Interval Summary Free Text/Dictation patient's pain in stable. still feels very weak. anxious to start chemotherapy Exam/Review of Systems Vital Signs Vitals Vital Signs Date Time Temp Pulse Resp B/P Pulse Ox O2 Delivery O2 Flow Rate FiO2 09/13/16 07:00 98.1 91 20 168/91 92 09/11/16 19:31 Room Air Intake and Output 09/12/16 09/12/16 09/13/16 15:00 23:00 07:00 Intake Total 700 ml 50 ml 2040 ml Output Total 1800 ml Balance 700 ml 50 ml 240 ml Exam Constitutional: alert, oriented Psych: no complaints Head: atraumatic, normocephalic Eyes: nl conjunctiva ENMT: nl external ears & nose Neck: supple Respiratory: clear to auscultation, normal air movement Cardiovascular: regular rate and rhythm Gastrointestinal: soft Musculoskeletal: nl extremities to inspection Results Result Diagram: 09/13/16 0445 09/13/16 0445 Results 24 hrs Laboratory Tests Test 09/12/16 12:05 09/12/16 20:19 09/13/16 04:45 09/13/16 08:03 Bedside Glucose 118 139 105 White Blood Count 5.3 Red Blood Count 3.11 L Hemoglobin 10.9 L Hematocrit 32.7 L Mean Corpuscular Volume 105.1 H Mean Corpuscular Hemoglobin 35.0 H Mean Corpuscular Hemoglobin Concent 33.3 Red Cell Distribution Width 15.4 H Platelet Count 182 Mean Platelet Volume 10.0 Neutrophils % 90.3 H Lymphocytes % 3.2 L Monocytes % 3.2 Eosinophils % 2.5 Basophils % 0.4 Nucleated Red Blood Cells % 0.0 Neutrophils # 4.7 Lymphocytes # 0.2 L Monocytes # 0.2 L Eosinophils # 0.1 Basophils # 0.0 Nucleated Red Blood Cells # 0.0 Sodium Level 139 Potassium Level 3.7 Chloride Level 107 Carbon Dioxide Level 25 Anion Gap 11 Blood Urea Nitrogen 8 Creatinine 0.87 Glucose Level 112 Calcium Level 8.8 Phosphorus Level 3.5 Magnesium Level 1.5 L Medications Medications Current Medications Sodium Chloride (NS) 1,000 ml @ 100 mls/hr Q10H IV Last administered on 05:13; Admin Dose 100 MLS/HR; Start 09/11/16 at 16:52 Ondansetron HCl (Zofran Inj) 4 mg Q6H PRN IV NAUSEA AND/OR VOMITING; Start at 17:00 Acetaminophen (Tylenol Tab) 650 mg Q6H PRN PO PAIN LEVEL 1-3 OR FEVER; Start at 17:00 Acetaminophen/ Hydrocodone Bitart ([place] (5/325)) 1 tab Q6H PRN PO MODERATE PAIN LEVEL 4-6 Last administered on 09/12/16 15:31; Admin Dose 1 TAB; Start at 17:00 Acetaminophen/ Hydrocodone Bitart ([place] (5/325)) 2 tab Q6H PRN PO SEVERE PAIN LEVEL 7-10 Last administered on 09/13/16 05:13; Admin Dose 2 TAB; Start at 17:00 Morphine Sulfate (morphine) 2 mg Q4H PRN IV SEVERE PAIN LEVEL 7-10 Last administered on 09/12/16 20:20; Admin Dose 2 MG; Start 09/11/16 at 17:00 Docusate Sodium (Colace) 100 mg Q12H PRN PO CONSTIPATION Last administered on 22:18; Admin Dose 100 MG; Start 09/11/16 at 17:00 Magnesium Hydroxide (Milk Of Mag) 30 ml DAILY PRN PO CONSTIPATION; Start at 17:00 Bisacodyl (Dulcolax Supp) 10 mg DAILY PRN [place] CONSTIPATION; Start 09/11/16 at 17 :00 Pantoprazole (Protonix Tab) 40 mg DAILY@06 PO Last administered on 09/13/16 05 :12; Admin Dose 40 MG; Start 09/12/16 at 06:00 Allopurinol (Zyloprim) 300 mg DAILY PO Last administered on 09/12/16 10:05; Admin Dose 300 MG; Start 09/12/16 at 09:00 Atenolol (Tenormin) 25 mg DAILY PO Last administered on 09/12/16 10:02; Admin Dose 25 MG; Start 09/12/16 at 09:00 Atorvastatin Calcium (Lipitor) 20 mg DAILY@21 PO Last administered on 20:13; Admin Dose 20 MG; Start 09/11/16 at 21:00 Fluoxetine HCl (Prozac) 60 mg DAILY PO Last administered on 09/12/16 10:03; Admin Dose 60 MG; Start 09/12/16 at 09:00 Miscellaneous Information 1 ea NOTE XX ; Start 09/11/16 at 18:00 Glucose (Glutose) 15 gm Q15M PRN PO DECREASED GLUCOSE; Start 09/11/16 at 18:00 Glucose (Glutose) 22.5 gm Q15M PRN PO DECREASED GLUCOSE; Start 09/11/16 at 18: 00 Dextrose (D50w Syringe) 25 ml Q15M PRN IV DECREASED GLUCOSE; Start 09/11/16 at 18:00 Dextrose (D50w Syringe) 50 ml Q15M PRN IV DECREASED GLUCOSE; Start 09/11/16 at 18:00 Glucagon (Glucagen) 1 mg Q15M PRN IM DECREASED GLUCOSE; Start 09/11/16 at 18:00 Glucose (Glutose) 15 gm Q15M PRN BUCCAL DECREASED GLUCOSE; Start 09/11/16 at 18 :00 Diphenhydramine HCl 25 mg 25 mg Q6H PRN PO ITCHING Last administered on t 13:11; Admin Dose 25 MG; Start 09/12/16 at 12:56 Ondansetron HCl 16 mg/ Dexamethasone 10 mg/ Diphenhydramine HCl 25 mg/Sodium Chloride 61 ml @ 252 mls/hr ONCE ONCE IV ; Start 09/13/16 at 10:00; Stop 09/13 at 10:14 Ondansetron HCl/ Sodium Chloride (Zofran Inj/NS) 54 ml @ 216 mls/hr Q8H PRN IV NAUSEA AND/OR VOMITING; Start 09/12/16 at 17:30 Methylprednisolone Sodium Succinate (Solu-Medrol) 50 mg Q4H PRN IV PRN ALLERGIC REACTION; Start 09/12/16 at 17:30 Diphenhydramine HCl (Benadryl) 25 mg Q4H PRN IV ALLERGIC REACTION; Start at 17:30 Meperidine HCl (Demerol) 50 mg Q4H PRN IV PRN REACTION TO CHEMO THERAPY; Start 09/12/16 at 17:30 Filgrastim 480 mcg 480 mcg DAILY@17 SC ; Start 09/16/16 at 17:00; Stop 09/20/16 at 17:01 Rituximab 500 mg/ Rituximab 250 mg/ Sodium Chloride 375 ml @ 0 mls/hr ONCE IV ; Start 09/13/16 at 11:00; Stop 09/13/16 at 14:00 Bendamustine HCl/ Sodium Chloride ([place]/NS) 109.6 ml @ 250 mls/hr Q24H IVPB ; Start 09/13/16 at 15:00; Stop 09/14/16 at 15:27 ROBERT DE LEÓN M.D. Sep 13, 2016 09:51
[2016-09-13] MEDS ORDERED: ONDANSETRON INJ 16 MG, DEXAMETHASONE 4 MG/ML 10 MG, DIPHENHYDRAMINE 25 MG in SOD CHLORI... IV ONE ×2 (10:00→22:30)
[2016-09-13] MEDS: FLUOXETINE 20 MG CAP PO SCH (10:03)
[2016-09-13] MEDS: ATENOLOL 25 MG TAB PO SCH (10:04)
[2016-09-13] MEDS: ALLOPURINOL 300 MG TAB PO SCH ×2 (10:04→10:10)
[2016-09-13] MEDS ORDERED: SOD CHLORIDE 0.9% IV SCH ×2 (11:00→23:00)
[2016-09-13] MEDS ORDERED: RITUXIMAB IV SCH ×2 (11:00→23:00)
[2016-09-13] MEDS ORDERED: POTASSIUM CHLORIDE (SR) 10 MEQ TAB PO ONE (11:00)
--- NOTE | 2016-09-13 11:00 | PN ---
Date/Time of Note Date/Time of Note DATE: 09/13/16 TIME: 10:49 Assessment/Plan VTE Prophylaxis VTE Prophylaxis Intervention: SCD's Lines/Catheters IV Catheter Type (from Nrs): Central Line (mediport ) Central line still needed: Yes (Medi port for chemo ) Assessment/Plan Assessment/Plan 81-year-old female: 1. Dehydration and diarrhea for 2 weeks per patient. No diarrhea so far, stool c diff pending Imodium prn if diarrhea Tolerating po well and remains stable CAT scan of the abdomen and pelvis with cirrhosis and mild splenomegaly, otherwise no acute findings 2. Non-Hodgkin lymphoma, according to Dr. Song, aggressive. The patient is due for chemotherapy at this point. Planning for chemo to start today so far with expected stay of 2 to 3 days Could not start yesterday because no chemo Rn available On Allopurinol and started on Neupogen per Dr Song 3. Hyperlipidemia. Continue statin therapy. 4. Hypothyroidism. Continue Synthroid. 5. Major depressive disorder. Continue Fluoxetine. 6. Hypertension. Continue Atenolol. Add Hydralazine prn 7. Diabetes mellitus. A1c 5.3, Continue sliding scale insulin for now. Hold Actos while inpatient. ADA diet Prophylaxis. SCDs for deep vein thrombosis prophylaxis and Protonix for gastrointestinal prophylaxis. DISPOSITION: To start chemotherapy today. Subjective 24 Hr Interval Summary Free Text/Dictation Loose stools but no diarrhea Afebrile Replete K/Mag Chemo to start today since Chemo Rn not available yesterday Exam/Review of Systems Vital Signs Vitals Vital Signs Date Time Temp Pulse Resp B/P Pulse Ox O2 Delivery O2 Flow Rate FiO2 09/13/16 07:00 98.1 91 20 168/91 92 09/11/16 19:31 Room Air Intake and Output 09/12/16 09/12/16 09/13/16 15:00 23:00 07:00 Intake Total 700 ml 50 ml 2040 ml Output Total 1800 ml Balance 700 ml 50 ml 240 ml Exam Constitutional: alert, obese, oriented, well developed Respiratory: clear to auscultation, normal air movement Cardiovascular: nl pulses, regular rate and rhythm Gastrointestinal: non-tender, soft Musculoskeletal: nl extremities to inspection Extremities: normal pulses, other (no edema, clubbing or cyanosis ) Neurological: SAWMILLING OPERATOR II-XII intact, nl mental status, nl speech, other ( generalised weakness ) Results Result Diagram: 09/13/16 0445 09/13/16 0445 Results 24 hrs Laboratory Tests Test 09/12/16 12:05 09/12/16 20:19 09/13/16 04:45 09/13/16 08:03 Bedside Glucose 118 139 105 White Blood Count 5.3 Red Blood Count 3.11 L Hemoglobin 10.9 L Hematocrit 32.7 L Mean Corpuscular Volume 105.1 H Mean Corpuscular Hemoglobin 35.0 H Mean Corpuscular Hemoglobin Concent 33.3 Red Cell Distribution Width 15.4 H Platelet Count 182 Mean Platelet Volume 10.0 Neutrophils % 90.3 H Lymphocytes % 3.2 L Monocytes % 3.2 Eosinophils % 2.5 Basophils % 0.4 Nucleated Red Blood Cells % 0.0 Neutrophils # 4.7 Lymphocytes # 0.2 L Monocytes # 0.2 L Eosinophils # 0.1 Basophils # 0.0 Nucleated Red Blood Cells # 0.0 Sodium Level 139 Potassium Level 3.7 Chloride Level 107 Carbon Dioxide Level 25 Anion Gap 11 Blood Urea Nitrogen 8 Creatinine 0.87 Glucose Level 112 Calcium Level 8.8 Phosphorus Level 3.5 Magnesium Level 1.5 L Medications Medications Current Medications Sodium Chloride (NS) 1,000 ml @ 100 mls/hr Q10H IV Last administered on 05:13; Admin Dose 100 MLS/HR; Start 09/11/16 at 16:52 Ondansetron HCl (Zofran Inj) 4 mg Q6H PRN IV NAUSEA AND/OR VOMITING; Start at 17:00 Acetaminophen (Tylenol Tab) 650 mg Q6H PRN PO PAIN LEVEL 1-3 OR FEVER; Start at 17:00 Acetaminophen/ Hydrocodone Bitart ([place] (5/325)) 1 tab Q6H PRN PO MODERATE PAIN LEVEL 4-6 Last administered on 09/12/16 15:31; Admin Dose 1 TAB; Start at 17:00 Acetaminophen/ Hydrocodone Bitart ([place] (5/325)) 2 tab Q6H PRN PO SEVERE PAIN LEVEL 7-10 Last administered on 09/13/16 05:13; Admin Dose 2 TAB; Start at 17:00 Morphine Sulfate (morphine) 2 mg Q4H PRN IV SEVERE PAIN LEVEL 7-10 Last administered on 09/12/16 20:20; Admin Dose 2 MG; Start 09/11/16 at 17:00 Docusate Sodium (Colace) 100 mg Q12H PRN PO CONSTIPATION Last administered on 22:18; Admin Dose 100 MG; Start 09/11/16 at 17:00 Magnesium Hydroxide (Milk Of Mag) 30 ml DAILY PRN PO CONSTIPATION; Start at 17:00 Bisacodyl (Dulcolax Supp) 10 mg DAILY PRN [place] CONSTIPATION; Start 09/11/16 at 17 :00 Pantoprazole (Protonix Tab) 40 mg DAILY@06 PO Last administered on 09/13/16 05 :12; Admin Dose 40 MG; Start 09/12/16 at 06:00 Allopurinol (Zyloprim) 300 mg DAILY PO Last administered on 09/13/16 10:04; Admin Dose 300 MG; Start 09/12/16 at 09:00 Atenolol (Tenormin) 25 mg DAILY PO Last administered on 09/13/16 10:04; Admin Dose 25 MG; Start 09/12/16 at 09:00 Atorvastatin Calcium (Lipitor) 20 mg DAILY@21 PO Last administered on 20:13; Admin Dose 20 MG; Start 09/11/16 at 21:00 Fluoxetine HCl (Prozac) 60 mg DAILY PO Last administered on 09/13/16 10:03; Admin Dose 60 MG; Start 09/12/16 at 09:00 Miscellaneous Information 1 ea NOTE XX ; Start 09/11/16 at 18:00 Glucose (Glutose) 15 gm Q15M PRN PO DECREASED GLUCOSE; Start 09/11/16 at 18:00 Glucose (Glutose) 22.5 gm Q15M PRN PO DECREASED GLUCOSE; Start 09/11/16 at 18: 00 Dextrose (D50w Syringe) 25 ml Q15M PRN IV DECREASED GLUCOSE; Start 09/11/16 at 18:00 Dextrose (D50w Syringe) 50 ml Q15M PRN IV DECREASED GLUCOSE; Start 09/11/16 at 18:00 Glucagon (Glucagen) 1 mg Q15M PRN IM DECREASED GLUCOSE; Start 09/11/16 at 18:00 Glucose (Glutose) 15 gm Q15M PRN BUCCAL DECREASED GLUCOSE; Start 09/11/16 at 18 :00 Diphenhydramine HCl 25 mg 25 mg Q6H PRN PO ITCHING Last administered on t 13:11; Admin Dose 25 MG; Start 09/12/16 at 12:56 Ondansetron HCl/ Sodium Chloride (Zofran Inj/NS) 54 ml @ 216 mls/hr Q8H PRN IV NAUSEA AND/OR VOMITING; Start 09/12/16 at 17:30 Methylprednisolone Sodium Succinate (Solu-Medrol) 50 mg Q4H PRN IV PRN ALLERGIC REACTION; Start 09/12/16 at 17:30 Diphenhydramine HCl (Benadryl) 25 mg Q4H PRN IV ALLERGIC REACTION; Start at 17:30 Meperidine HCl (Demerol) 50 mg Q4H PRN IV PRN REACTION TO CHEMO THERAPY; Start 09/12/16 at 17:30 Filgrastim 480 mcg 480 mcg DAILY@17 SC ; Start 09/16/16 at 17:00; Stop 09/20/16 at 17:01 Rituximab 500 mg/ Rituximab 250 mg/ Sodium Chloride 375 ml @ 0 mls/hr ONCE IV ; Start 09/13/16 at 11:00; Stop 09/13/16 at 14:00 Bendamustine HCl/ Sodium Chloride ([place]/NS) 109.6 ml @ 250 mls/hr Q24H IVPB ; Start 09/13/16 at 15:00; Stop 09/14/16 at 15:27 JESUS EUBANKS Sep 13, 2016 11:00
[2016-09-13] MEDS ORDERED: MAGNESIUM SULFATE 2 GM/50 ML 50 ML IVPB ONE (12:30)
[2016-09-13] MEDS ORDERED: BENDAMUSTINE HCL IVPB SCH ×2 (15:00→23:00)
[2016-09-13] MEDS ORDERED: SOD CHLORIDE 0.9% IVPB SCH ×2 (15:00→23:00)
[2016-09-13 20:36] VITALS: BP 143/78; RESP 18
[2016-09-13] MEDS: ATORVASTATIN 20 MG TAB PO SCH (20:51)
[2016-09-13 23:10] VITALS: BP 155/68; PULSE 95; RESP 18
[2016-09-13 23:25] VITALS: BP 156/56; PULSE 91; RESP 18
[2016-09-13 23:40] VITALS: BP 152/70; PULSE 93; RESP 18
[2016-09-13 23:54] VITALS: BP 149/68; PULSE 92; RESP 18
[2016-09-14] VITALS (13 sets, daily range): BP systolic 141–189; BP diastolic 66–88; PULSE 72–116; RESP 18–20
[2016-09-14] MEDS: HYDROCODONE/APAP (5/325) TAB PO PRN ×4 (02:01→20:31)
[2016-09-14] MEDS ORDERED: BENDAMUSTINE HCL IVPB SCH (03:00)
[2016-09-14] MEDS ORDERED: SOD CHLORIDE 0.9% IVPB SCH (03:00)
[2016-09-14] MEDS: hydrALAzine 20 MG INJ IV PRN (03:17)
[2016-09-14] MEDS: SOD CHLORIDE 0.9% 1,000 ML IV SCH ×2 (04:52→18:25)
[2016-09-14] MEDS: LEVOTHYROXINE 175 MCG TAB PO SCH (04:53)
[2016-09-14] MEDS: PANTOPRAZOLE (EC) 40 MG TAB PO SCH (04:54)
[2016-09-14 05:16] LABS: ADD SCAN DIFF NO
[2016-09-14 05:26] LABS: ABNORMAL IP MESSAGE 1; BASOPHILS % 0.2 % (0.0-2.0); HEMATOCRIT 34.2 % (37.0-47.0); HEMOGLOBIN 11.3 g/dl (12.0-16.0); LYMPHOCYTES # 0.3 10^3/ul (0.8-2.9); MEAN CORPUSCULAR VOLUME 105.9 fl (82.0-101.0); MEAN PLATELET VOLUME 10.3 fl (7.4-10.4); MONOCYTE # 0.1 10^3/ul (0.3-0.9); MONOCYTES % 0.9 % (0.0-11.0); NEUTROPHIL # 5.4 10^3/ul (1.6-7.5); PLATELET COUNT 169 10^3/UL (140-415); RED BLOOD COUNT 3.23 10^6/ul (4.20-5.40); RED CELL DISTRIBUTION WIDTH 15.3 % (11.5-14.5); WHITE BLOOD COUNT 5.9 10^3/ul (4.8-10.8)
[2016-09-14 05:34] LABS: POTASSIUM 4.4 mmol/L (3.5-5.1)
[2016-09-14 05:36] LABS: CREATININE 0.99 mg/dl (0.44-1.00)
[2016-09-14 05:37] LABS: CALCIUM 9.3 mg/dl (8.4-10.2)
[2016-09-14 05:39] LABS: MAGNESIUM 1.7 mg/dl (1.7-2.5); PHOSPHORUS 2.9 mg/dl (2.5-4.9)
[2016-09-14 05:41] LABS: LYMPHOCYTES % 5.1 % (15.0-51.0); NEUTROPHILS % 92.4 % (39.0-77.0)
[2016-09-14] MEDS: FLUOXETINE 20 MG CAP PO SCH (08:39)
[2016-09-14] MEDS: ATENOLOL 25 MG TAB PO SCH (08:41)
[2016-09-14] MEDS: ALLOPURINOL 300 MG TAB PO SCH (08:42)
[2016-09-14] MEDS: INSULIN ASPART [NOVOLOG] 3 ML PEN SC SCH ×4 (08:45→20:31)
--- NOTE | 2016-09-14 12:58 | PN ---
Date/Time of Note Date/Time of Note DATE: 09/14/16 TIME: 12:40 Assessment/Plan VTE Prophylaxis VTE Prophylaxis Intervention: SCD's Lines/Catheters IV Catheter Type (from Nrsg): Central Line Central line still needed: Yes (medi port for chemo ) Assessment/Plan Assessment/Plan 81-year-old female: 1. Dehydration and diarrhea for 2 weeks per patient. No diarrhea so far, stool c diff pending Imodium prn if diarrhea Tolerating po well and remains stable and no diarrhea CAT scan of the abdomen and pelvis with cirrhosis and mild splenomegaly, otherwise no acute findings 2. Non-Hodgkin lymphoma, according to Dr. Song, aggressive. The patient is due for chemotherapy at this point. Planning for chemo to start today so far with expected stay of 2 to 3 days D/c plan for tomorrow with home health PT and Rn Continue Allopurinol and started on Neupogen per Dr Song 3. Hyperlipidemia. Continue statin therapy. 4. Hypothyroidism. Continue Synthroid. 5. Major depressive disorder. Continue Fluoxetine. 6. Hypertension. Continue Atenolol. Add Hydralazine prn 7. Diabetes mellitus. A1c 5.3, Continue sliding scale insulin for now. Hold Actos while inpatient. ADA diet Prophylaxis. SCDs for deep vein thrombosis prophylaxis and Protonix for gastrointestinal prophylaxis. DISPOSITION: On chemo currently with d/c plan in the next 24 to 48 hrs hrs if remains stable . Subjective 24 Hr Interval Summary Free Text/Dictation Patient doing well, no complaints On chemo, counts OK so far Exam/Review of Systems Vital Signs Vitals Vital Signs Date Time Temp Pulse Resp B/P Pulse Ox O2 Delivery O2 Flow Rate FiO2 09/14/16 07:58 98.0 113 19 162/76 97 09/14/16 07:25 Nasal Cannula Intake and Output 09/13/16 09/13/16 09/14/16 15:00 23:00 07:00 Intake Total 1150 ml 1286 ml Output Total 1400 ml Balance 1150 ml -114 ml Exam Constitutional: alert, obese, oriented, well developed Respiratory: clear to auscultation, normal air movement Cardiovascular: nl pulses, regular rate and rhythm Gastrointestinal: non-tender, soft Musculoskeletal: nl extremities to inspection Extremities: normal pulses, other (no edema, clubbing or cyanosis ) Neurological: CATERPILLAR TRACTOR OPERATOR II-XII intact, nl mental status, nl speech, other (improving generalized weakness ) Results Result Diagram: 09/14/16 0440 09/14/16 0440 Results 24 hrs Laboratory Tests Test 09/13/16 17:30 09/13/16 20:49 09/14/16 04:40 09/14/16 07:25 Bedside Glucose 96 105 227 H White Blood Count 5.9 Red Blood Count 3.23 L Hemoglobin 11.3 L Hematocrit 34.2 L Mean Corpuscular Volume 105.9 H Mean Corpuscular Hemoglobin 35.0 H Mean Corpuscular Hemoglobin Concent 33.0 Red Cell Distribution Width 15.3 H Platelet Count 169 Mean Platelet Volume 10.3 Neutrophils % 92.4 H Lymphocytes % 5.1 L Monocytes % 0.9 Eosinophils % 0.0 Basophils % 0.2 Nucleated Red Blood Cells % 0.0 Neutrophils # 5.4 Lymphocytes # 0.3 L Monocytes # 0.1 L Eosinophils # 0.0 Basophils # 0.0 Nucleated Red Blood Cells # 0.0 Sodium Level 142 Potassium Level 4.4 Chloride Level 108 Carbon Dioxide Level 24 Anion Gap 14 Blood Urea Nitrogen 8 Creatinine 0.99 Glucose Level 211 Calcium Level 9.3 Phosphorus Level 2.9 Magnesium Level 1.7 Test 09/14/16 12:13 Bedside Glucose 119 Medications Medications Current Medications Sodium Chloride (NS) 1,000 ml @ 100 mls/hr Q10H IV Last administered on 20:51; Admin Dose 100 MLS/HR; Start 09/11/16 at 16:52 Ondansetron HCl (Zofran Inj) 4 mg Q6H PRN IV NAUSEA AND/OR VOMITING; Start at 17:00 Acetaminophen (Tylenol Tab) 650 mg Q6H PRN PO PAIN LEVEL 1-3 OR FEVER; Start at 17:00 Acetaminophen/ Hydrocodone Bitart ([place] (5/325)) 1 tab Q6H PRN PO MODERATE PAIN LEVEL 4-6 Last administered on 09/12/16 15:31; Admin Dose 1 TAB; Start at 17:00 Acetaminophen/ Hydrocodone Bitart ([place] (5/325)) 2 tab Q6H PRN PO SEVERE PAIN LEVEL 7-10 Last administered on 09/14/16 08:39; Admin Dose 2 TAB; Start at 17:00 Morphine Sulfate (morphine) 2 mg Q4H PRN IV SEVERE PAIN LEVEL 7-10 Last administered on 09/12/16 20:20; Admin Dose 2 MG; Start 09/11/16 at 17:00 Docusate Sodium (Colace) 100 mg Q12H PRN PO CONSTIPATION Last administered on 22:18; Admin Dose 100 MG; Start 09/11/16 at 17:00 Magnesium Hydroxide (Milk Of Mag) 30 ml DAILY PRN PO CONSTIPATION; Start at 17:00 Bisacodyl (Dulcolax Supp) 10 mg DAILY PRN [place] CONSTIPATION; Start 09/11/16 at 17 :00 Pantoprazole (Protonix Tab) 40 mg DAILY@06 PO Last administered on 09/14/16 04 :54; Admin Dose 40 MG; Start 09/12/16 at 06:00 Allopurinol (Zyloprim) 300 mg DAILY PO Last administered on 09/14/16 08:42; Admin Dose 300 MG; Start 09/12/16 at 09:00 Atenolol (Tenormin) 25 mg DAILY PO Last administered on 09/14/16 08:41; Admin Dose 25 MG; Start 09/12/16 at 09:00 Atorvastatin Calcium (Lipitor) 20 mg DAILY@21 PO Last administered on 20:51; Admin Dose 20 MG; Start 09/11/16 at 21:00 Fluoxetine HCl (Prozac) 60 mg DAILY PO Last administered on 09/14/16 08:39; Admin Dose 60 MG; Start 09/12/16 at 09:00 Miscellaneous Information 1 ea NOTE XX ; Start 09/11/16 at 18:00 Glucose (Glutose) 15 gm Q15M PRN PO DECREASED GLUCOSE; Start 09/11/16 at 18:00 Glucose (Glutose) 22.5 gm Q15M PRN PO DECREASED GLUCOSE; Start 09/11/16 at 18: 00 Dextrose (D50w Syringe) 25 ml Q15M PRN IV DECREASED GLUCOSE; Start 09/11/16 at 18:00 Dextrose (D50w Syringe) 50 ml Q15M PRN IV DECREASED GLUCOSE; Start 09/11/16 at 18:00 Glucagon (Glucagen) 1 mg Q15M PRN IM DECREASED GLUCOSE; Start 09/11/16 at 18:00 Glucose (Glutose) 15 gm Q15M PRN BUCCAL DECREASED GLUCOSE; Start 09/11/16 at 18 :00 Diphenhydramine HCl 25 mg 25 mg Q6H PRN PO ITCHING Last administered on 13:11; Admin Dose 25 MG; Start 09/12/16 at 12:56 Ondansetron HCl/ Sodium Chloride (Zofran Inj/NS) 54 ml @ 216 mls/hr Q8H PRN IV NAUSEA AND/OR VOMITING; Start 09/12/16 at 17:30 Methylprednisolone Sodium Succinate (Solu-Medrol) 50 mg Q4H PRN IV PRN ALLERGIC REACTION; Start 09/12/16 at 17:30 Diphenhydramine HCl (Benadryl) 25 mg Q4H PRN IV ALLERGIC REACTION; Start at 17:30 Meperidine HCl (Demerol) 50 mg Q4H PRN IV PRN REACTION TO CHEMO THERAPY; Start 09/12/16 at 17:30 Hydralazine HCl 10 mg 10 mg Q8H PRN IV ELEVATED BLOOD PRESSURE Last administered on 09/14/16 03:17; Admin Dose 10 MG; Start 09/13/16 at 11:30 Bendamustine HCl/ Sodium Chloride ([place]/NS) 109.6 ml @ 250 mls/hr Q24H IVPB Last administered on 09/14/16 05:53; Admin Dose 250 MLS/HR; Start 09/14/16 at 03:00; Stop 09/15/16 at 03:27 Filgrastim (Neupogen) 480 mcg DAILY@17 SC ; Start 09/15/16 at 17:00; Stop at 17:01 JESUS EUBANKS Sep 14, 2016 12:56
--- NOTE | 2016-09-14 14:25 | CONS ---
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 Pt now presents with weakness, body pain and shortness of breath that is most likely secondary to her highly proliferative lymphoma that is currently progressing. Given that she is due for her chemotherapy, we will initiate her next dose of chemotherapy at this time in attempts to control this highly proliferative disease. # DLBCL -continue with Rituxan + Bendamustine. day 1 dose was completed this morning -Rituxan 750 mg IV day 1 -Bendamustine 240 mg IV day1 and day 2. -will check Hep panel as patient will be getting Rituxan. need to prevent hep B reactivation -pt will need Neupogen as an out patient # Tumor lysis ppx given patient has a highly proliferative lymphoma -start allopurinol 300mg q dy -continue with NS hydration #Pain -[facility] ok as needed for pain # Depression -cont Prozac Approximately 40 min were spent at patient's bedside and in coordination of her care Problems: Consultation Date/Type/Reason Admit Date/Time Sep 11, 2016 at 16:03 Initial Consult Date 09/12/16 Type of Consultation: hematology Reason for Consultation DLBCL Referring Provider: JESUS EUBANKS 24 HR Interval Summary Free Text/Dictation pt completed her day 1 dose of rituxan and bendamustine. still c/o body pains Exam/Review of Systems Vital Signs Vitals Vital Signs Date Time Temp Pulse Resp B/P Pulse Ox O2 Delivery O2 Flow Rate FiO2 09/14/16 13:45 101 20 142/66 93 Room Air 09/14/16 07:58 98.0 Intake and Output 09/13/16 09/13/16 09/14/16 15:00 23:00 07:00 Intake Total 1150 ml 1286 ml Output Total 1400 ml Balance 1150 ml -114 ml Exam Constitutional: alert, oriented Psych: no complaints Head: normocephalic Eyes: nl conjunctiva ENMT: nl external ears & nose Neck: non-tender, supple Respiratory: clear to auscultation, normal air movement Cardiovascular: nl pulses, regular rate and rhythm Gastrointestinal: soft Musculoskeletal: nl extremities to inspection, nl gait and stance Results Result Diagram: 09/14/16 0440 09/14/16 0440 Results 24 hrs Laboratory Tests Test 09/13/16 17:30 09/13/16 20:49 09/14/16 04:40 09/14/16 07:25 Bedside Glucose 96 105 227 H White Blood Count 5.9 Red Blood Count 3.23 L Hemoglobin 11.3 L Hematocrit 34.2 L Mean Corpuscular Volume 105.9 H Mean Corpuscular Hemoglobin 35.0 H Mean Corpuscular Hemoglobin Concent 33.0 Red Cell Distribution Width 15.3 H Platelet Count 169 Mean Platelet Volume 10.3 Neutrophils % 92.4 H Lymphocytes % 5.1 L Monocytes % 0.9 Eosinophils % 0.0 Basophils % 0.2 Nucleated Red Blood Cells % 0.0 Neutrophils # 5.4 Lymphocytes # 0.3 L Monocytes # 0.1 L Eosinophils # 0.0 Basophils # 0.0 Nucleated Red Blood Cells # 0.0 Sodium Level 142 Potassium Level 4.4 Chloride Level 108 Carbon Dioxide Level 24 Anion Gap 14 Blood Urea Nitrogen 8 Creatinine 0.99 Glucose Level 211 Calcium Level 9.3 Phosphorus Level 2.9 Magnesium Level 1.7 Test 09/14/16 12:13 Bedside Glucose 119 Medications Medications Current Medications Sodium Chloride (NS) 1,000 ml @ 100 mls/hr Q10H IV Last administered on 20:51; Admin Dose 100 MLS/HR; Start 09/11/16 at 16:52 Ondansetron HCl (Zofran Inj) 4 mg Q6H PRN IV NAUSEA AND/OR VOMITING; Start at 17:00 Acetaminophen (Tylenol Tab) 650 mg Q6H PRN PO PAIN LEVEL 1-3 OR FEVER; Start at 17:00 Acetaminophen/ Hydrocodone Bitart ([place] (5/325)) 1 tab Q6H PRN PO MODERATE PAIN LEVEL 4-6 Last administered on 09/12/16 15:31; Admin Dose 1 TAB; Start at 17:00 Acetaminophen/ Hydrocodone Bitart ([place] (5/325)) 2 tab Q6H PRN PO SEVERE PAIN LEVEL 7-10 Last administered on 09/14/16 08:39; Admin Dose 2 TAB; Start at 17:00 Morphine Sulfate (morphine) 2 mg Q4H PRN IV SEVERE PAIN LEVEL 7-10 Last administered on 09/12/16 20:20; Admin Dose 2 MG; Start 09/11/16 at 17:00 Docusate Sodium (Colace) 100 mg Q12H PRN PO CONSTIPATION Last administered on 22:18; Admin Dose 100 MG; Start 09/11/16 at 17:00 Magnesium Hydroxide (Milk Of Mag) 30 ml DAILY PRN PO CONSTIPATION; Start at 17:00 Bisacodyl (Dulcolax Supp) 10 mg DAILY PRN [place] CONSTIPATION; Start 09/11/16 at 17 :00 Pantoprazole (Protonix Tab) 40 mg DAILY@06 PO Last administered on 09/14/16 04 :54; Admin Dose 40 MG; Start 09/12/16 at 06:00 Allopurinol (Zyloprim) 300 mg DAILY PO Last administered on 09/14/16 08:42; Admin Dose 300 MG; Start 09/12/16 at 09:00 Atenolol (Tenormin) 25 mg DAILY PO Last administered on 09/14/16 08:41; Admin Dose 25 MG; Start 09/12/16 at 09:00 Atorvastatin Calcium (Lipitor) 20 mg DAILY@21 PO Last administered on 20:51; Admin Dose 20 MG; Start 09/11/16 at 21:00 Fluoxetine HCl (Prozac) 60 mg DAILY PO Last administered on 09/14/16 08:39; Admin Dose 60 MG; Start 09/12/16 at 09:00 Miscellaneous Information 1 ea NOTE XX ; Start 09/11/16 at 18:00 Glucose (Glutose) 15 gm Q15M PRN PO DECREASED GLUCOSE; Start 09/11/16 at 18:00 Glucose (Glutose) 22.5 gm Q15M PRN PO DECREASED GLUCOSE; Start 09/11/16 at 18: 00 Dextrose (D50w Syringe) 25 ml Q15M PRN IV DECREASED GLUCOSE; Start 09/11/16 at 18:00 Dextrose (D50w Syringe) 50 ml Q15M PRN IV DECREASED GLUCOSE; Start 09/11/16 at 18:00 Glucagon (Glucagen) 1 mg Q15M PRN IM DECREASED GLUCOSE; Start 09/11/16 at 18:00 Glucose (Glutose) 15 gm Q15M PRN BUCCAL DECREASED GLUCOSE; Start 09/11/16 at 18 :00 Diphenhydramine HCl 25 mg 25 mg Q6H PRN PO ITCHING Last administered on 13:11; Admin Dose 25 MG; Start 09/12/16 at 12:56 Ondansetron HCl/ Sodium Chloride (Zofran Inj/NS) 54 ml @ 216 mls/hr Q8H PRN IV NAUSEA AND/OR VOMITING; Start 09/12/16 at 17:30 Methylprednisolone Sodium Succinate (Solu-Medrol) 50 mg Q4H PRN IV PRN ALLERGIC REACTION; Start 09/12/16 at 17:30 Diphenhydramine HCl (Benadryl) 25 mg Q4H PRN IV ALLERGIC REACTION; Start at 17:30 Meperidine HCl (Demerol) 50 mg Q4H PRN IV PRN REACTION TO CHEMO THERAPY; Start 09/12/16 at 17:30 Hydralazine HCl 10 mg 10 mg Q8H PRN IV ELEVATED BLOOD PRESSURE Last administered on 09/14/16 03:17; Admin Dose 10 MG; Start 09/13/16 at 11:30 Bendamustine HCl/ Sodium Chloride ([place]/NS) 109.6 ml @ 250 mls/hr Q24H IVPB Last administered on 09/14/16 05:53; Admin Dose 250 MLS/HR; Start 09/14/16 at 03:00; Stop 09/15/16 at 03:27 Filgrastim (Neupogen) 480 mcg DAILY@17 SC ; Start 09/15/16 at 17:00; Stop at 17:01 ROBERT DE LEÓN M.D. Sep 14, 2016 14:25
[2016-09-14 15:09] LABS: HAAIG REFLEX REFLEX FILED
[2016-09-14 17:46] LABS: HEPATITIS B CORE ANTIBODY NEGATIVE (NEGATIVE)
[2016-09-14] MEDS ORDERED: ALPRAZOLAM 1 MG TAB PO PRN (20:00)
[2016-09-14] MEDS: ATORVASTATIN 20 MG TAB PO SCH (20:30)
[2016-09-15] VITALS (7 sets, daily range): BP systolic 148–175; BP diastolic 63–90; PULSE 68–90; RESP 17–19
[2016-09-15] MEDS: SOD CHLORIDE 0.9% 1,000 ML IV SCH (00:12)
[2016-09-15] MEDS: hydrALAzine 20 MG INJ IV PRN (05:51)
[2016-09-15] MEDS ORDERED: BENDAMUSTINE HCL IVPB SCH (06:00)
[2016-09-15] MEDS ORDERED: SOD CHLORIDE 0.9% IVPB SCH (06:00)
[2016-09-15] MEDS: LEVOTHYROXINE 175 MCG TAB PO SCH (06:27)
[2016-09-15] MEDS: PANTOPRAZOLE (EC) 40 MG TAB PO SCH (06:27)
[2016-09-15] MEDS: ACETAMINOPHEN 325 MG TAB PO PRN ×3 (07:13→20:41)
[2016-09-15] MEDS: INSULIN ASPART [NOVOLOG] 3 ML PEN SC SCH ×4 (07:50→21:00)
[2016-09-15] MEDS: ATENOLOL 25 MG TAB PO SCH (08:02)
[2016-09-15] MEDS: ALLOPURINOL 300 MG TAB PO SCH (09:58)
[2016-09-15] MEDS: FLUOXETINE 20 MG CAP PO SCH (09:58)
--- NOTE | 2016-09-15 10:45 | CONS ---
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 Pt now presents with weakness, body pain and shortness of breath that is most likely secondary to her highly proliferative lymphoma that is currently progressing. Given that she is due for her chemotherapy, we will initiate her next dose of chemotherapy at this time in attempts to control this highly proliferative disease. # DLBCL -continue with Rituxan + Bendamustine. day 2 dose was completed this morning -Rituxan 750 mg IV day 1 -Bendamustine 240 mg IV day1 and day 2. -will check Hep panel as patient will be getting Rituxan. need to prevent hep B reactivation -pt will receive Neulasta on Sunday in our office -of for discharge from hematology standpoint # Tumor lysis ppx given patient has a highly proliferative lymphoma -start allopurinol 300mg q dy -continue with NS hydration #Pain -Webb ok as needed for pain # Depression -cont Prozac Approximately 40 min were spent at patient's bedside and in coordination of her care Problems: Consultation Date/Type/Reason Admit Date/Time Sep 11, 2016 at 16:03 Initial Consult Date 09/12/16 Type of Consultation: hematology Reason for Consultation diffuse large b cell lymphoma Referring Provider: JESUS EUBANKS 24 HR Interval Summary Free Text/Dictation no acute overnight events Exam/Review of Systems Vital Signs Vitals Vital Signs Date Time Temp Pulse Resp B/P Pulse Ox O2 Delivery O2 Flow Rate FiO2 09/15/16 08:46 84 18 97 21 09/15/16 07:41 99.0 167/77 09/15/16 06:41 Room Air Intake and Output 09/14/16 09/14/16 09/15/16 15:00 23:00 07:00 Intake Total 1100 ml 500 ml Output Total 800 ml Balance 1100 ml -300 ml Exam Constitutional: alert, oriented Psych: no complaints Head: normocephalic Eyes: nl conjunctiva ENMT: nl external ears & nose Neck: non-tender, supple Respiratory: clear to auscultation, normal air movement Cardiovascular: regular rate and rhythm Gastrointestinal: soft Musculoskeletal: nl extremities to inspection Results Result Diagram: 09/14/16 0440 09/14/16 0440 Results 24 hrs Laboratory Tests Test 09/14/16 12:13 09/14/16 14:50 09/14/16 17:41 09/14/16 19:58 Bedside Glucose 119 142 131 Hepatitis B Surface Antigen NEGATIVE Hepatitis B Core Total Antibody NEGATIVE Hepatitis C Antibody NEGATIVE Test 09/15/16 07:49 Bedside Glucose 89 Medications Medications Current Medications Sodium Chloride (NS) 1,000 ml @ 100 mls/hr Q10H IV Last administered on 00:12; Admin Dose 100 MLS/HR; Start 09/11/16 at 16:52 Ondansetron HCl (Zofran Inj) 4 mg Q6H PRN IV NAUSEA AND/OR VOMITING Last administered on 09/15/16 05:55; Admin Dose 4 MG; Start 09/11/16 at 17:00 Acetaminophen (Tylenol Tab) 650 mg Q6H PRN PO PAIN LEVEL 1-3 OR FEVER Last administered on 09/15/16 07:13; Admin Dose 650 MG; Start 09/11/16 at 17:00 Acetaminophen/ Hydrocodone Bitart (Webb (5/325)) 1 tab Q6H PRN PO MODERATE PAIN LEVEL 4-6 Last administered on 09/14/16 20:31; Admin Dose 1 TAB; Start at 17:00 Acetaminophen/ Hydrocodone Bitart (Webb (5/325)) 2 tab Q6H PRN PO SEVERE PAIN LEVEL 7-10 Last administered on 09/14/16 14:40; Admin Dose 2 TAB; Start at 17:00 Morphine Sulfate (morphine) 2 mg Q4H PRN IV SEVERE PAIN LEVEL 7-10 Last administered on 09/12/16 20:20; Admin Dose 2 MG; Start 09/11/16 at 17:00 Docusate Sodium (Colace) 100 mg Q12H PRN PO CONSTIPATION Last administered on 22:18; Admin Dose 100 MG; Start 09/11/16 at 17:00 Magnesium Hydroxide (Milk Of Mag) 30 ml DAILY PRN PO CONSTIPATION; Start at 17:00 Bisacodyl (Dulcolax Supp) 10 mg DAILY PRN [place] CONSTIPATION; Start 09/11/16 at 17 :00 Pantoprazole (Protonix Tab) 40 mg DAILY@06 PO Last administered on 09/15/16 06 :27; Admin Dose 40 MG; Start 09/12/16 at 06:00 Allopurinol (Zyloprim) 300 mg DAILY PO Last administered on 09/15/16 09:58; Admin Dose 300 MG; Start 09/12/16 at 09:00 Atenolol (Tenormin) 25 mg DAILY PO Last administered on 09/15/16 08:02; Admin Dose 25 MG; Start 09/12/16 at 09:00 Atorvastatin Calcium (Lipitor) 20 mg DAILY@21 PO Last administered on 20:30; Admin Dose 20 MG; Start 09/11/16 at 21:00 Fluoxetine HCl (Prozac) 60 mg DAILY PO Last administered on 09/15/16 09:58; Admin Dose 60 MG; Start 09/12/16 at 09:00 Miscellaneous Information 1 ea NOTE XX ; Start 09/11/16 at 18:00 Glucose (Glutose) 15 gm Q15M PRN PO DECREASED GLUCOSE; Start 09/11/16 at 18:00 Glucose (Glutose) 22.5 gm Q15M PRN PO DECREASED GLUCOSE; Start 09/11/16 at 18: 00 Dextrose (D50w Syringe) 25 ml Q15M PRN IV DECREASED GLUCOSE; Start 09/11/16 at 18:00 Dextrose (D50w Syringe) 50 ml Q15M PRN IV DECREASED GLUCOSE; Start 09/11/16 at 18:00 Glucagon (Glucagen) 1 mg Q15M PRN IM DECREASED GLUCOSE; Start 09/11/16 at 18:00 Glucose (Glutose) 15 gm Q15M PRN BUCCAL DECREASED GLUCOSE; Start 09/11/16 at 18 :00 Diphenhydramine HCl 25 mg 25 mg Q6H PRN PO ITCHING Last administered on 13:11; Admin Dose 25 MG; Start 09/12/16 at 12:56 Ondansetron HCl/ Sodium Chloride (Zofran Inj/NS) 54 ml @ 216 mls/hr Q8H PRN IV NAUSEA AND/OR VOMITING; Start 09/12/16 at 17:30 Methylprednisolone Sodium Succinate (Solu-Medrol) 50 mg Q4H PRN IV PRN ALLERGIC REACTION; Start 09/12/16 at 17:30 Diphenhydramine HCl (Benadryl) 25 mg Q4H PRN IV ALLERGIC REACTION Last administered on 09/15/16 05:53; Admin Dose 25 MG; Start 09/12/16 at 17:30 Meperidine HCl (Demerol) 50 mg Q4H PRN IV PRN REACTION TO CHEMO THERAPY; Start 09/12/16 at 17:30 Hydralazine HCl (Apresoline) 10 mg Q8H PRN IV ELEVATED BLOOD PRESSURE Last administered on 09/15/16 05:51; Admin Dose 10 MG; Start 09/13/16 at 11:30 Filgrastim (Neupogen) 480 mcg DAILY@17 SC ; Start 09/15/16 at 17:00; Stop at 17:01 Alprazolam (Xanax) 1 mg HS PRN PO ANXIETY Last administered on 09/14/16 20:31 ; Admin Dose 1 MG; Start 09/14/16 at 20:00 ROBERT DE LEÓN M.D. Sep 15, 2016 10:45
--- NOTE | 2016-09-15 14:00 | RADRPT ---
PROCEDURE: XR Chest. CLINICAL INDICATION: Shortness of breath. TECHNIQUE: Single frontal view of the chest was obtained COMPARISON: Chest x-ray 09/11/2016 03:32 p.m. FINDINGS: The soft tissues are normal. There are degenerative osteophytes in the thoracic spine. There is a Port-A-Cath over the upper right chest wall with catheter tip in the superior vena cava its tip at t he level of the azygos vein. The left ventricle is enlarged. The cardiomediastinal silhouette and hilar structures are normal. The pulmonary vasculature is equilibrated. There are vascular calcifica tions in the aortic arch. There are bilateral interstitial infiltrates extending from the perihilar areas which are more extensive in the right lung than left. The right diaphragm is elevated. The c ostophrenic angles are normal. IMPRESSION: 1. Interval development of asymmetric interstitial infiltrates more prominent in the right lung and left. Interstitial spread of tumor, pulmonary edema associated with fluid overload or pneumonia can be considered in the differential diagnosis. 2. Left ventricular enlargement. 3. Hannah-catheter its tip in the superior vena cava. 4. Atherosclerotic vascular disease. RPTAT:AAJJ Physician Aldair Date Time Electronically viewed and signed by Basilio Gan Physician on 09/15/2016 13:59 DURGA/
[2016-09-15] MEDS: HYDROCODONE/APAP (5/325) TAB PO PRN (14:10)
[2016-09-15] MEDS ORDERED: FUROSEMIDE 20 MG INJ IV ONE (14:30)
--- NOTE | 2016-09-15 16:19 | PN ---
Date/Time of Note Date/Time of Note DATE: 09/15/16 TIME: 16:19 Assessment/Plan VTE Prophylaxis VTE Prophylaxis Intervention: SCD's Lines/Catheters IV Catheter Type (from Nrs): right dhruv cath Central line still needed: Yes (for chemo) Assessment/Plan Assessment/Plan 81-year-old female: 1. Mild respiratory distress today with CXR findings of ?pulmonary edema. D/c IVF and Lasix x1 CT chest in AM if needed. 2. Non-Hodgkin lymphoma, according to Dr. Song, aggressive. S/p Chemo. D/c plan for tomorrow with home health PT and RN if respiratory status stable Continue Allopurinol and to be on outpatient NeuLesta per Dr Song 3. Hyperlipidemia. Continue statin therapy. 4. Hypothyroidism. Continue Synthroid. 5. Major depressive/Anxiety disorder. Continue Fluoxetine and add Xanax prn . 6. Hypertension. Continue Atenolol. Add Hydralazine prn 7. Diabetes mellitus. A1c 5.3, Continue sliding scale insulin for now. Hold Actos while inpatient. ADA diet 8. Cirrhosis and mild splenomegaly on CAT scan of the abdomen and pelvis. Stable Prophylaxis. SCDs for deep vein thrombosis prophylaxis and Protonix for gastrointestinal prophylaxis. DISPOSITION: S/p chemo d/c plan in the next 24 if respiratory status better and stable . Subjective 24 Hr Interval Summary Free Text/Dictation Patient with episode of SOB today and anxiety last night CXR with ? pulmonary edema IVF d/c'd and Lasix x 1 Feels better this afternoon Exam/Review of Systems Vital Signs Vitals Vital Signs Date Time Temp Pulse Resp B/P Pulse Ox O2 Delivery O2 Flow Rate FiO2 09/15/16 13:34 98.2 79 19 150/70 97 Nasal Cannula 09/15/16 09:00 2.0 09/15/16 08:46 21 Intake and Output 09/14/16 09/14/16 09/15/16 15:00 23:00 07:00 Intake Total 1100 ml 500 ml Output Total 800 ml Balance 1100 ml -300 ml Exam Constitutional: alert, obese, oriented, well developed Respiratory: diminished breath sounds (bases but clear to ausculataion otherwise ) Cardiovascular: nl pulses, regular rate and rhythm Gastrointestinal: non-tender, soft Musculoskeletal: nl extremities to inspection Extremities: normal pulses, other (no edema, clubbing or cyanosis ) Neurological: DISTRICT ADVISER II-XII intact, nl mental status, nl speech, other (improving weakness ) Results Result Diagram: 09/14/16 0440 09/14/16 0440 Results 24 hrs Laboratory Tests Test 09/14/16 17:41 09/14/16 19:58 09/15/16 07:49 09/15/16 12:07 Bedside Glucose 142 131 89 111 Medications Medications Current Medications Allopurinol (Zyloprim) 300 mg DAILY PO Last administered on 09/15/16 09:58; Admin Dose 300 MG; Start 09/12/16 at 09:00 Atenolol (Tenormin) 25 mg DAILY PO Last administered on 09/15/16 08:02; Admin Dose 25 MG; Start 09/12/16 at 09:00 Atorvastatin Calcium (Lipitor) 20 mg DAILY@21 PO Last administered on 20:30; Admin Dose 20 MG; Start 09/11/16 at 21:00 Fluoxetine HCl (Prozac) 60 mg DAILY PO Last administered on 09/15/16 09:58; Admin Dose 60 MG; Start 09/12/16 at 09:00 Miscellaneous Information 1 ea NOTE XX ; Start 09/11/16 at 18:00 Glucose (Glutose) 15 gm Q15M PRN PO DECREASED GLUCOSE; Start 09/11/16 at 18:00 Glucose (Glutose) 22.5 gm Q15M PRN PO DECREASED GLUCOSE; Start 09/11/16 at 18: 00 Dextrose (D50w Syringe) 25 ml Q15M PRN IV DECREASED GLUCOSE; Start 09/11/16 at 18:00 Dextrose (D50w Syringe) 50 ml Q15M PRN IV DECREASED GLUCOSE; Start 09/11/16 at 18:00 Glucagon (Glucagen) 1 mg Q15M PRN IM DECREASED GLUCOSE; Start 09/11/16 at 18:00 Glucose (Glutose) 15 gm Q15M PRN BUCCAL DECREASED GLUCOSE; Start 09/11/16 at 18 :00 Diphenhydramine HCl 25 mg 25 mg Q6H PRN PO ITCHING Last administered on 13:11; Admin Dose 25 MG; Start 09/12/16 at 12:56 Ondansetron HCl/ Sodium Chloride (Zofran Inj/NS) 54 ml @ 216 mls/hr Q8H PRN IV NAUSEA AND/OR VOMITING; Start 09/12/16 at 17:30 Methylprednisolone Sodium Succinate (Solu-Medrol) 50 mg Q4H PRN IV PRN ALLERGIC REACTION; Start 09/12/16 at 17:30 Diphenhydramine HCl (Benadryl) 25 mg Q4H PRN IV ALLERGIC REACTION Last administered on 09/15/16 05:53; Admin Dose 25 MG; Start 09/12/16 at 17:30 Meperidine HCl (Demerol) 50 mg Q4H PRN IV PRN REACTION TO CHEMO THERAPY; Start 09/12/16 at 17:30 Hydralazine HCl (Apresoline) 10 mg Q8H PRN IV ELEVATED BLOOD PRESSURE Last administered on 09/15/16 05:51; Admin Dose 10 MG; Start 09/13/16 at 11:30 Filgrastim (Neupogen) 480 mcg DAILY@17 SC ; Start 09/15/16 at 17:00; Stop at 17:01 Alprazolam (Xanax) 1 mg HS PRN PO ANXIETY Last administered on 09/14/16 20:31 ; Admin Dose 1 MG; Start 09/14/16 at 20:00 Procedures Procedures PROCEDURE: XR Chest. CLINICAL INDICATION: Shortness of breath. TECHNIQUE: Single frontal view of the chest was obtained COMPARISON: Chest x-ray 09/11/2016 03:32 p.m. FINDINGS: The soft tissues are normal. There are degenerative osteophytes in the thoracic spine. There is a Port-A-Cath over the upper right chest wall with catheter tip in the superior vena cava its tip at the level of the azygos vein. The left ventricle is enlarged. The cardiomediastinal silhouette and hilar structures are normal. The pulmonary vasculature is equilibrated. There are vascular calcifications in the aortic arch. There are bilateral interstitial infiltrates extending from the perihilar areas which are more extensive in the right lung than left. The right diaphragm is elevated. The costophrenic angles are normal. IMPRESSION: 1. Interval development of asymmetric interstitial infiltrates more prominent in the right lung and left. Interstitial spread of tumor, pulmonary edema associated with fluid overload or pneumonia can be considered in the differential diagnosis. 2. Left ventricular enlargement. 3. Dhruv-catheter its tip in the superior vena cava. 4. Atherosclerotic vascular disease. RPTAT:AAJJ Basilio Gan, Physician Date Time Electronically viewed and signed by Basilio Gan, Physician on 09/15/2016 13:59 DURGA/ JESUS EUBANKS Sep 15, 2016 16:19
[2016-09-15] MEDS ORDERED: ALPRAZOLAM 1 MG TAB PO PRN (16:30)
[2016-09-15] MEDS: FILGRASTIM 480 MCG INJ SC SCH (17:19)
[2016-09-15] MEDS: HYDROCODONE/APAP (10/325) TAB PO PRN ×2 (17:58→22:55)
[2016-09-15] MEDS: ALPRAZOLAM 0.5 MG TAB PO PRN (20:40)
[2016-09-15] MEDS: ATORVASTATIN 20 MG TAB PO SCH (20:40)
[2016-09-15] MEDS: DIPHENHYDRAMINE 25 MG CAP PO PRN (22:55)
[2016-09-16] VITALS (7 sets, daily range): BP systolic 132–198; BP diastolic 70–88; PULSE 68–90; RESP 17–20
[2016-09-16] MEDS: ACETAMINOPHEN 325 MG TAB PO PRN (01:57)
[2016-09-16 05:08] LABS: ADD SCAN DIFF NO
[2016-09-16 05:19] LABS: ABNORMAL IP MESSAGE 1; BASOPHILS % 0.2 % (0.0-2.0); EOSINOPHILS # 0.1 10^3/ul (0.0-0.5); EOSINOPHILS % 0.4 % (0.0-7.0); HEMATOCRIT 32.4 % (37.0-47.0); LYMPHOCYTES # 0.2 10^3/ul (0.8-2.9); MEAN CORPUSCULAR HEMOGLOBIN 35.6 pg (29.0-33.0); MEAN CORPUSCULAR VOLUME 104.9 fl (82.0-101.0); MEAN PLATELET VOLUME 9.8 fl (7.4-10.4); MONOCYTE # 1.2 10^3/ul (0.3-0.9); MONOCYTES % 4.9 % (0.0-11.0); NEUTROPHIL # 21.8 10^3/ul (1.6-7.5); PLATELET COUNT 171 10^3/UL (140-415); RED BLOOD COUNT 3.09 10^6/ul (4.20-5.40); RED CELL DISTRIBUTION WIDTH 15.6 % (11.5-14.5); WHITE BLOOD COUNT 23.5 10^3/ul (4.8-10.8)
[2016-09-16 05:31] LABS: LYMPHOCYTES % 0.7 % (15.0-51.0); NEUTROPHILS % 92.5 % (39.0-77.0)
[2016-09-16 05:47] LABS: MAGNESIUM 1.3 mg/dl (1.7-2.5); PHOSPHORUS 4.6 mg/dl (2.5-4.9)
[2016-09-16 06:00] LABS: CALCIUM 9.3 mg/dl (8.4-10.2); CREATININE 1.06 mg/dl (0.44-1.00); POTASSIUM 3.4 mmol/L (3.5-5.1)
[2016-09-16] MEDS: hydrALAzine 20 MG INJ IV PRN ×2 (06:22→20:07)
[2016-09-16] MEDS: LEVOTHYROXINE 175 MCG TAB PO SCH (06:22)
[2016-09-16] MEDS: INSULIN ASPART [NOVOLOG] 3 ML PEN SC SCH ×4 (07:50→20:06)
[2016-09-16] MEDS: ALLOPURINOL 300 MG TAB PO SCH (08:24)
[2016-09-16] MEDS: FLUOXETINE 20 MG CAP PO SCH (08:24)
[2016-09-16] MEDS: ATENOLOL 25 MG TAB PO SCH (08:24)
[2016-09-16] MEDS: HYDROCODONE/APAP (10/325) TAB PO PRN ×3 (08:28→20:41)
[2016-09-16] MEDS ORDERED: POTASSIUM CHLORIDE (SR) 20 MEQ TAB PO STA (08:34)
[2016-09-16] MEDS ORDERED: MAGNESIUM SULFATE 3 GM in SOD CHLORIDE 0.9% 100 ML IVPB ONE (09:30)
--- NOTE | 2016-09-16 09:48 | PN ---
Date/Time of Note Date/Time of Note DATE: 09/16/16 TIME: 09:40 Assessment/Plan VTE Prophylaxis VTE Prophylaxis Intervention: SCD's Lines/Catheters IV Catheter Type (from Nrs): Saline Lock Assessment/Plan Assessment/Plan 81-year-old female: 1. Mild respiratory distress sat 92 to 97 % on RA. Off iVF and Lasix x1 yesterday Patient allergic tp Lovenox so has had SCDs in place Repeat CXR this AM pending and possible to have CT chest NC, Incentive spirometry. 2. Nausea, Vomiting and ongoing MORRISON since end of Chemo yesterday AM Continue Zofran, Tylenol prn Monitor 3. Non-Hodgkin lymphoma, according to Dr. Song, aggressive. S/p Chemo. D/c plan for tomorrow with home health PT and RN if respiratory status stable Continue Allopurinol and to be on outpatient NeuLesta per Dr Song 4. Leukocytosis: has been on Neupogen, afebrile, f/u CXR and abx as needed. Monitor 5. Hyperlipidemia. Continue statin therapy. 6. Hypothyroidism. Continue Synthroid. 7. Major depressive/Anxiety disorder. Continue Fluoxetine and add Xanax prn . 8. Hypertension. Continue Atenolol. Add Hydralazine prn 9. Diabetes mellitus. A1c 5.3, Continue sliding scale insulin for now. Hold Actos while inpatient. ADA diet 10. Cirrhosis and mild splenomegaly on CAT scan of the abdomen and pelvis. Stable 11. Electrolytes deficiency: replete K and Mag today and recheck labs in AM Prophylaxis. SCDs for deep vein thrombosis prophylaxis and Protonix for gastrointestinal prophylaxis. DISPOSITION: S/p chemo d/c plan in the next 24 if respiratory status better and stable . Subjective 24 Hr Interval Summary Free Text/Dictation Patient not feeling well with generalized aches and pain worse today , Nausea on D#1 post chemo Afebrile and VSS on RA C/o of SOB, repeat CXR pending and possible CT chest later if needed WBC up but has been on Neupogen sarath-chemo Exam/Review of Systems Vital Signs Vitals Vital Signs Date Time Temp Pulse Resp B/P Pulse Ox O2 Delivery O2 Flow Rate FiO2 09/16/16 08:06 97.5 86 20 157/70 94 09/16/16 06:44 Room Air 09/15/16 09:00 2.0 09/15/16 08:46 21 Intake and Output 09/15/16 09/15/16 09/16/16 15:00 23:00 07:00 Intake Total 700 ml 600 ml 800 ml Output Total 840 ml 900 ml Balance 700 ml -240 ml -100 ml Exam Constitutional: alert, obese, oriented Psych: anxiety Respiratory: diminished breath sounds (bases ), normal air movement Cardiovascular: nl pulses, regular rate and rhythm Gastrointestinal: non-tender, soft Musculoskeletal: nl extremities to inspection Extremities: normal pulses, other (no edema, clubbing or cyanosis ) Neurological: WHITE METAL CORROSION PROOFER II-XII intact, nl mental status, nl speech, other (chronic generalized weakness ) Results Result Diagram: 09/16/1644609/16/16446 Results 24 hrs Laboratory Tests Test 09/15/16 12:07 09/15/16 17:05 09/15/16 20:44 09/16/16 04:47 Bedside Glucose 111 110 123 White Blood Count 23.5 #H Red Blood Count 3.09 L Hemoglobin 11.0 L Hematocrit 32.4 L Mean Corpuscular Volume 104.9 H Mean Corpuscular Hemoglobin 35.6 H Mean Corpuscular Hemoglobin Concent 34.0 Red Cell Distribution Width 15.6 H Platelet Count 171 Mean Platelet Volume 9.8 Neutrophils % 92.5 H Lymphocytes % 0.7 L Monocytes % 4.9 Eosinophils % 0.4 Basophils % 0.2 Nucleated Red Blood Cells % 0.0 Neutrophils # 21.8 H Lymphocytes # 0.2 L Monocytes # 1.2 H Eosinophils # 0.1 Basophils # 0.0 Nucleated Red Blood Cells # 0.0 Sodium Level 138 Potassium Level 3.4 L Chloride Level 103 Carbon Dioxide Level 25 Anion Gap 13 Blood Urea Nitrogen 11 Creatinine 1.06 H Glucose Level 127 Calcium Level 9.3 Phosphorus Level 4.6 Magnesium Level 1.3 L Test 09/16/16 07:30 Bedside Glucose 142 Medications Medications Current Medications Allopurinol (Zyloprim) 300 mg DAILY PO Last administered on 09/16/16 08:24; Admin Dose 300 MG; Start 09/12/16 at 09:00 Atenolol (Tenormin) 25 mg DAILY PO Last administered on 09/16/16 08:24; Admin Dose 25 MG; Start 09/12/16 at 09:00 Atorvastatin Calcium (Lipitor) 20 mg DAILY@21 PO Last administered on 20:40; Admin Dose 20 MG; Start 09/11/16 at 21:00 Fluoxetine HCl (Prozac) 60 mg DAILY PO Last administered on 09/16/16 08:24; Admin Dose 60 MG; Start 09/12/16 at 09:00 Miscellaneous Information 1 ea NOTE XX ; Start 09/11/16 at 18:00 Glucose (Glutose) 15 gm Q15M PRN PO DECREASED GLUCOSE; Start 09/11/16 at 18:00 Glucose (Glutose) 22.5 gm Q15M PRN PO DECREASED GLUCOSE; Start 09/11/16 at 18: 00 Dextrose (D50w Syringe) 25 ml Q15M PRN IV DECREASED GLUCOSE; Start 09/11/16 at 18:00 Dextrose (D50w Syringe) 50 ml Q15M PRN IV DECREASED GLUCOSE; Start 09/11/16 at 18:00 Glucagon (Glucagen) 1 mg Q15M PRN IM DECREASED GLUCOSE; Start 09/11/16 at 18:00 Glucose (Glutose) 15 gm Q15M PRN BUCCAL DECREASED GLUCOSE; Start 09/11/16 at 18 :00 Diphenhydramine HCl 25 mg 25 mg Q6H PRN PO ITCHING Last administered on 22:55; Admin Dose 25 MG; Start 09/12/16 at 12:56 Ondansetron HCl/ Sodium Chloride (Zofran Inj/NS) 54 ml @ 216 mls/hr Q8H PRN IV NAUSEA AND/OR VOMITING; Start 09/12/16 at 17:30 Methylprednisolone Sodium Succinate (Solu-Medrol) 50 mg Q4H PRN IV PRN ALLERGIC REACTION; Start 09/12/16 at 17:30 Diphenhydramine HCl (Benadryl) 25 mg Q4H PRN IV ALLERGIC REACTION Last administered on 09/15/16 05:53; Admin Dose 25 MG; Start 09/12/16 at 17:30 Meperidine HCl (Demerol) 50 mg Q4H PRN IV PRN REACTION TO CHEMO THERAPY; Start 09/12/16 at 17:30 Hydralazine HCl (Apresoline) 10 mg Q8H PRN IV ELEVATED BLOOD PRESSURE Last administered on 09/16/16 06:22; Admin Dose 10 MG; Start 09/13/16 at 11:30 Filgrastim (Neupogen) 480 mcg DAILY@17 SC Last administered on 09/15/16 17:19 ; Admin Dose 480 MCG; Start 09/15/16 at 17:00; Stop 09/19/16 at 17:01 Acetaminophen/ Hydrocodone Bitart ([place]berry (10/325)) 1 tab Q4H PRN PO PAIN Last administered on 09/16/16 08:28; Admin Dose 1 TAB; Start 09/15/16 at 16:30 Alprazolam (Xanax) 0.5 mg HS PRN PO ANXIETY Last administered on 09/15/16 20: 40; Admin Dose 0.5 MG; Start 09/15/16 at 17:00 Acetaminophen 650 mg 650 mg Q6H PRN PO PAIN AND OR ELEVATED TEMP Last administered on 09/16/16 01:57; Admin Dose 650 MG; Start 09/15/16 at 21:00 Magnesium Sulfate/ Sodium Chloride (Magnesium Sulfate/NS) 106 ml @ 35.333 mls/ hr ONCE ONCE IVPB ; Start 09/16/16 at 09:30; Stop 09/16/16 at 12:29 JESUS EUBANKS Sep 16, 2016 09:48
--- NOTE | 2016-09-16 10:07 | RADRPT ---
PROCEDURE: XR Chest. CLINICAL INDICATION: Infiltrates. TECHNIQUE: Single frontal view of the chest was obtained COMPARISON: Chest x-ray 09/15/2016 01:53 p.m. FINDINGS: The soft tissues are normal. There are degenerative osteophytes in the thoracic spine. There is a Port-A-Cath over the right chest wall with the catheter tip at the level of the azygos vein insertio n into the superior vena cava. The heart is enlarged. The cardiomediastinal silhouette and hilar s tructures are normal. The pulmonary vasculature is increased. There is a left-sided aorta. There are interstitial infiltrates which have increased slightly compared to 09/15/2016. The costophrenic an gles are normal. IMPRESSION: 1. Mild cardiomegaly with interstitial pulmonary edema which is unchanged or slightly improved when compared to 09/15/2016. 2. Port-A-Cath implanted over the right chest wall with the catheter tip in the superior vena cava. 3. Atherosclerosis of the aortic arch. RPTAT:AAJJ Physician Aldair Date Time Electronically viewed and signed by Physician Aldair on 09/16/2016 10:07 DURGA/
[2016-09-16] MEDS ORDERED: MAGNESIUM HYDROXIDE 30ML CUP PO PRN (14:00)
--- NOTE | 2016-09-16 14:04 | CONS ---
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 Pt now presents with weakness, body pain and shortness of breath that is most likely secondary to her highly proliferative lymphoma that is currently progressing. Given that she is due for her chemotherapy, we will initiate her next dose of chemotherapy at this time in attempts to control this highly proliferative disease. # DLBCL -continue with Rituxan + Bendamustine. day 2 dose was completed this morning -Rituxan 750 mg IV day 1 -Bendamustine 240 mg IV day1 and day 2. -will check Hep panel as patient will be getting Rituxan. need to prevent hep B reactivation -pt will receive Neulasta on Sunday in our office -ir this chemotherapy is too strong for the patient we may have to decrease the dose as an out patient # SOB -likely secondary to mild pulmonary edema -agree with Lasix per primary team # Tumor lysis ppx given patient has a highly proliferative lymphoma -start allopurinol 300mg q dy -continue with NS hydration #Pain -Stilwell ok as needed for pain # Depression -cont Prozac Approximately 40 min were spent at patient's bedside and in coordination of her care Problems: Consultation Date/Type/Reason Admit Date/Time Sep 11, 2016 at 16:03 Initial Consult Date 09/12/16 Type of Consultation: hematology Reason for Consultation DLBCL Referring Provider: JESUS EUBANKS 24 HR Interval Summary Free Text/Dictation pt c/o shortness of breath. was given 1 dose of Lasix yesterday. still feels very weak Exam/Review of Systems Vital Signs Vitals Vital Signs Date Time Temp Pulse Resp B/P Pulse Ox O2 Delivery O2 Flow Rate FiO2 09/16/16 09:00 2.0 09/16/16 08:06 97.5 86 20 157/70 94 09/16/16 06:44 Room Air 09/15/16 08:46 21 Intake and Output 09/15/16 09/15/16 09/16/16 15:00 23:00 07:00 Intake Total 700 ml 600 ml 800 ml Output Total 840 ml 900 ml Balance 700 ml -240 ml -100 ml Exam Constitutional: alert, oriented Psych: anxiety, depression Head: normocephalic Eyes: nl conjunctiva ENMT: nl external ears & nose Neck: non-tender, supple Respiratory: crackles/rales Cardiovascular: regular rate and rhythm Gastrointestinal: soft Musculoskeletal: nl extremities to inspection, nl gait and stance Results Result Diagram: 09/16/167 09/16/16 0447 Results 24 hrs Laboratory Tests Test 09/15/16 17:05 09/15/16 20:44 09/16/16 04:47 09/16/16 07:30 Bedside Glucose 110 123 142 White Blood Count 23.5 #H Red Blood Count 3.09 L Hemoglobin 11.0 L Hematocrit 32.4 L Mean Corpuscular Volume 104.9 H Mean Corpuscular Hemoglobin 35.6 H Mean Corpuscular Hemoglobin Concent 34.0 Red Cell Distribution Width 15.6 H Platelet Count 171 Mean Platelet Volume 9.8 Neutrophils % 92.5 H Lymphocytes % 0.7 L Monocytes % 4.9 Eosinophils % 0.4 Basophils % 0.2 Nucleated Red Blood Cells % 0.0 Neutrophils # 21.8 H Lymphocytes # 0.2 L Monocytes # 1.2 H Eosinophils # 0.1 Basophils # 0.0 Nucleated Red Blood Cells # 0.0 Sodium Level 138 Potassium Level 3.4 L Chloride Level 103 Carbon Dioxide Level 25 Anion Gap 13 Blood Urea Nitrogen 11 Creatinine 1.06 H Glucose Level 127 Calcium Level 9.3 Phosphorus Level 4.6 Magnesium Level 1.3 L Test 09/16/16 12:42 Bedside Glucose 115 Medications Medications Current Medications Allopurinol (Zyloprim) 300 mg DAILY PO Last administered on 09/16/16 08:24; Admin Dose 300 MG; Start 09/12/16 at 09:00 Atenolol (Tenormin) 25 mg DAILY PO Last administered on 09/16/16 08:24; Admin Dose 25 MG; Start 09/12/16 at 09:00 Atorvastatin Calcium (Lipitor) 20 mg DAILY@21 PO Last administered on 20:40; Admin Dose 20 MG; Start 09/11/16 at 21:00 Fluoxetine HCl (Prozac) 60 mg DAILY PO Last administered on 09/16/16 08:24; Admin Dose 60 MG; Start 09/12/16 at 09:00 Miscellaneous Information 1 ea NOTE XX ; Start 09/11/16 at 18:00 Glucose (Glutose) 15 gm Q15M PRN PO DECREASED GLUCOSE; Start 09/11/16 at 18:00 Glucose (Glutose) 22.5 gm Q15M PRN PO DECREASED GLUCOSE; Start 09/11/16 at 18: 00 Dextrose (D50w Syringe) 25 ml Q15M PRN IV DECREASED GLUCOSE; Start 09/11/16 at 18:00 Dextrose (D50w Syringe) 50 ml Q15M PRN IV DECREASED GLUCOSE; Start 09/11/16 at 18:00 Glucagon (Glucagen) 1 mg Q15M PRN IM DECREASED GLUCOSE; Start 09/11/16 at 18:00 Glucose (Glutose) 15 gm Q15M PRN BUCCAL DECREASED GLUCOSE; Start 09/11/16 at 18 :00 Diphenhydramine HCl 25 mg 25 mg Q6H PRN PO ITCHING Last administered on 22:55; Admin Dose 25 MG; Start 09/12/16 at 12:56 Ondansetron HCl/ Sodium Chloride (Zofran Inj/NS) 54 ml @ 216 mls/hr Q8H PRN IV NAUSEA AND/OR VOMITING; Start 09/12/16 at 17:30 Methylprednisolone Sodium Succinate (Solu-Medrol) 50 mg Q4H PRN IV PRN ALLERGIC REACTION; Start 09/12/16 at 17:30 Diphenhydramine HCl (Benadryl) 25 mg Q4H PRN IV ALLERGIC REACTION Last administered on 09/15/16 05:53; Admin Dose 25 MG; Start 09/12/16 at 17:30 Meperidine HCl (Demerol) 50 mg Q4H PRN IV PRN REACTION TO CHEMO THERAPY; Start 09/12/16 at 17:30 Hydralazine HCl (Apresoline) 10 mg Q8H PRN IV ELEVATED BLOOD PRESSURE Last administered on 09/16/16 06:22; Admin Dose 10 MG; Start 09/13/16 at 11:30 Filgrastim (Neupogen) 480 mcg DAILY@17 SC Last administered on 09/15/16 17:19 ; Admin Dose 480 MCG; Start 09/15/16 at 17:00; Stop 09/19/16 at 17:01 Acetaminophen/ Hydrocodone Bitart ([place] (10)) 1 tab Q4H PRN PO PAIN Last administered on 09/16/16 13:43; Admin Dose 1 TAB; Start 09/15/16 at 16:30 Alprazolam (Xanax) 0.5 mg HS PRN PO ANXIETY Last administered on 09/15/16 20: 40; Admin Dose 0.5 MG; Start 09/15/16 at 17:00 Acetaminophen (Tylenol Tab) 650 mg Q6H PRN PO PAIN AND OR ELEVATED TEMP Last administered on 09/16/16 01:57; Admin Dose 650 MG; Start 09/15/16 at 21:00 Magnesium Hydroxide (Milk Of Mag) 30 ml DAILY PRN PO CONSTIPATION; Start at 14:00 ROBERT DE LEÓN M.D. Sep 16, 2016 14:04
[2016-09-16] MEDS: FILGRASTIM 480 MCG INJ SC SCH (16:56)
[2016-09-16] MEDS ORDERED: FILGRASTIM 480 MCG INJ SC SCH (17:00)
[2016-09-16] MEDS: ATORVASTATIN 20 MG TAB PO SCH (20:06)
[2016-09-16] MEDS: ALPRAZOLAM 0.5 MG TAB PO PRN (20:40)
[2016-09-17] MEDS: HYDROCODONE/APAP (10/325) TAB PO PRN ×2 (01:04→08:15)
[2016-09-17 05:35] LABS: POTASSIUM 3.4 mmol/L (3.5-5.1)
[2016-09-17 05:36] LABS: MAGNESIUM 1.7 mg/dl (1.7-2.5); PHOSPHORUS 3.7 mg/dl (2.5-4.9)
[2016-09-17 05:37] LABS: CREATININE 0.9 mg/dl (0.44-1.00)
[2016-09-17 05:38] LABS: CALCIUM 9.1 mg/dl (8.4-10.2)
[2016-09-17] MEDS: INSULIN ASPART [NOVOLOG] 3 ML PEN SC SCH ×2 (07:50→11:40)
[2016-09-17 07:58] VITALS: BP 176/82; RESP 20
[2016-09-17] MEDS: ATENOLOL 25 MG TAB PO SCH (08:14)
[2016-09-17] MEDS: FLUOXETINE 20 MG CAP PO SCH (08:14)
[2016-09-17] MEDS: LEVOTHYROXINE 175 MCG TAB PO SCH (08:14)
[2016-09-17] MEDS: ALLOPURINOL 300 MG TAB PO SCH (08:15)
[2016-09-17] MEDS ORDERED: POTASSIUM CHLORIDE (SR) 20 MEQ TAB PO STA (08:43)
[2016-09-17] MEDS ORDERED: FUROSEMIDE 20 MG INJ IV ONE (09:00)
[2016-09-17 09:30] VITALS: BP 171/72; PULSE 78; RESP 17
[2016-09-17] MEDS ORDERED: MAGNESIUM SULFATE 2 GM/50 ML 50 ML IVPB ONE (10:00)
--- NOTE | 2016-09-17 10:07 | PN ---
Date/Time of Note Date/Time of Note DATE: 09/17/16 TIME: 09:54 Assessment/Plan VTE Prophylaxis VTE Prophylaxis Intervention: SCD's Lines/Catheters IV Catheter Type (from Nrsg): Central line still needed: Yes (medi port for chemo ) Urinary Cath still in place: No Assessment/Plan Assessment/Plan 81-year-old female: 1. Mild respiratory distress sat 92 to 97 % on RA.Resolved, off IVF Lasix x1 this AM again prior to discharge this afternoon. Patient allergic to Lovenox so has had SCDs in place Repeat CXR this AM yesterday with some improvement of pulmonary edema. Continue IS at home 2. Nausea, Vomiting and ongoing MORRISON since end of Chemo yesterday AM, resolving Continue Zofran, Tylenol prn Tolerating po 3. Non-Hodgkin lymphoma, according to Dr. Song, aggressive. S/p Chemo. D/c home today with home health PT and RN Continue Allopurinol and to be on outpatient NeuLesta per Dr Song 4. Leukocytosis: has been on Neupogen, afebrile. 5. Hyperlipidemia. Continue statin therapy. 6. Hypothyroidism. Continue Synthroid. 7. Major depressive/Anxiety disorder. Continue Fluoxetine and add Xanax prn . 8. Hypertension. Continue Atenolol. Add Hydralazine prn 9. Diabetes mellitus. A1c 5.3, Continue sliding scale insulin for now. Hold Actos while inpatient. ADA diet 10. Cirrhosis and mild splenomegaly on CAT scan of the abdomen and pelvis. Stable 11. Electrolytes deficiency: replete K and Mag today and recheck labs in AM Prophylaxis. SCDs for deep vein thrombosis prophylaxis and Protonix for gastrointestinal prophylaxis. DISPOSITION: S/p chemo d/c home today with outpatient PCP and Oncology follow up next week . Subjective 24 Hr Interval Summary Free Text/Dictation Patient better today and less complaints Lasix x1 this AM too Plan for d/c home today after seen by Dr Song Exam/Review of Systems Vital Signs Vitals Vital Signs Date Time Temp Pulse Resp B/P Pulse Ox O2 Delivery O2 Flow Rate FiO2 09/17/16 09:30 78 17 171/72 Room Air 09/17/16 07:58 98.1 95 09/16/16 12:00 2.0 09/15/16 08:46 21 Intake and Output 09/16/16 09/16/16 09/17/16 15:00 23:00 07:00 Intake Total 106 ml 1300 ml 1000 ml Output Total 1000 ml 900 ml Balance 106 ml 300 ml 100 ml Exam Constitutional: alert, obese, oriented, well developed Respiratory: clear to auscultation, normal air movement Cardiovascular: bruits, regular rate and rhythm Gastrointestinal: non-tender, soft Musculoskeletal: nl extremities to inspection Extremities: normal pulses, other (no edema, clubbing or cyanosis ) Neurological: PERSONAL SECURITY SPECIALIST II-XII intact, nl mental status, nl speech, other ( generalized weakness chronic, patient has a wheelchair at home ) Results Result Diagram: 09/16/16 0447 09/17/16 0423 Results 24 hrs Laboratory Tests Test 09/16/16 12:42 09/16/16 17:01 09/16/16 20:05 09/17/16 04:23 Bedside Glucose 115 99 103 Sodium Level 134 L Potassium Level 3.4 L Chloride Level 100 Carbon Dioxide Level 28 Anion Gap 9 Blood Urea Nitrogen 13 Creatinine 0.90 Glucose Level 119 Calcium Level 9.1 Phosphorus Level 3.7 Magnesium Level 1.7 Test 09/17/16 07:49 Bedside Glucose 121 Medications Medications Current Medications Allopurinol (Zyloprim) 300 mg DAILY PO Last administered on 09/17/16 08:15; Admin Dose 300 MG; Start 09/12/16 at 09:00 Atenolol (Tenormin) 25 mg DAILY PO Last administered on 09/17/16 08:14; Admin Dose 25 MG; Start 09/12/16 at 09:00 Atorvastatin Calcium (Lipitor) 20 mg DAILY@21 PO Last administered on 09/16/16 20:06; Admin Dose 20 MG; Start 09/11/16 at 21:00 Fluoxetine HCl (Prozac) 60 mg DAILY PO Last administered on 09/17/16 08:14; Admin Dose 60 MG; Start 09/12/16 at 09:00 Miscellaneous Information 1 ea NOTE XX ; Start 09/11/16 at 18:00 Glucose (Glutose) 15 gm Q15M PRN PO DECREASED GLUCOSE; Start 09/11/16 at 18:00 Glucose (Glutose) 22.5 gm Q15M PRN PO DECREASED GLUCOSE; Start 09/11/16 at 18: 00 Dextrose (D50w Syringe) 25 ml Q15M PRN IV DECREASED GLUCOSE; Start 09/11/16 at 18:00 Dextrose (D50w Syringe) 50 ml Q15M PRN IV DECREASED GLUCOSE; Start 09/11/16 at 18:00 Glucagon (Glucagen) 1 mg Q15M PRN IM DECREASED GLUCOSE; Start 09/11/16 at 18:00 Glucose (Glutose) 15 gm Q15M PRN BUCCAL DECREASED GLUCOSE; Start 09/11/16 at 18 :00 Diphenhydramine HCl 25 mg 25 mg Q6H PRN PO ITCHING Last administered on 22:55; Admin Dose 25 MG; Start 09/12/16 at 12:56 Ondansetron HCl/ Sodium Chloride (Zofran Inj/NS) 54 ml @ 216 mls/hr Q8H PRN IV NAUSEA AND/OR VOMITING; Start 09/12/16 at 17:30 Methylprednisolone Sodium Succinate (Solu-Medrol) 50 mg Q4H PRN IV PRN ALLERGIC REACTION; Start 09/12/16 at 17:30 Diphenhydramine HCl (Benadryl) 25 mg Q4H PRN IV ALLERGIC REACTION Last administered on 09/15/16 05:53; Admin Dose 25 MG; Start 09/12/16 at 17:30 Meperidine HCl (Demerol) 50 mg Q4H PRN IV PRN REACTION TO CHEMO THERAPY; Start 09/12/16 at 17:30 Hydralazine HCl (Apresoline) 10 mg Q8H PRN IV ELEVATED BLOOD PRESSURE Last administered on 09/16/16 20:07; Admin Dose 10 MG; Start 09/13/16 at 11:30 Filgrastim (Neupogen) 480 mcg DAILY@17 SC Last administered on 09/16/16 16:56; Admin Dose 480 MCG; Start 09/15/16 at 17:00; Stop 09/19/16 at 17:01 Acetaminophen/ Hydrocodone Bitart ([place] (10/325)) 1 tab Q4H PRN PO PAIN Last administered on 09/17/16 08:15; Admin Dose 1 TAB; Start 09/15/16 at 16:30 Alprazolam (Xanax) 0.5 mg HS PRN PO ANXIETY Last administered on 09/16/16 20:40 ; Admin Dose 0.5 MG; Start 09/15/16 at 17:00 Acetaminophen (Tylenol Tab) 650 mg Q6H PRN PO PAIN AND OR ELEVATED TEMP Last administered on 09/16/16 01:57; Admin Dose 650 MG; Start 09/15/16 at 21:00 Magnesium Hydroxide 30 ml 30 ml DAILY PRN PO CONSTIPATION Last administered on 09/16/16 16:50; Admin Dose 30 ML; Start 09/16/16 at 14:00 Magnesium Sulfate (Magnesium Sulfate 2 Gm/50 ml) 50 ml @ 25 mls/hr ONCE ONCE IVPB ; Start 09/17/16 at 10:00; Stop 09/17/16 at 11:59 Furosemide (Lasix) 20 mg ONCE ONCE IV Last administered on 09/17/16 09:24; Admin Dose 20 MG; Start 09/17/16 at 09:00; Stop 09/17/16 at 09:01 JESUS EUBANKS Sep 17, 2016 10:07
--- NOTE | 2016-09-17 10:09 | PDOCDIS ---
Discharge Instructions CONDITION Patient Condition: Stable HOME CARE INSTRUCTIONS: Special Diet: 1800 ADA ACTIVITY: Activity Restrictions: Slowly Increase Activity FOLLOW UP/APPOINTMENTS Appointments Follow up with PCP within 1 week Follow up with Dr Song this week Follow up with Home health services JESUS EUBANKS Sep 17, 2016 10:09
[2016-09-17] MEDS ORDERED: ALPR0.5T6 PO (10:11)
[2016-09-17] MEDS ORDERED: HEPARIN (100 UNITS/ML) 5 ML SYG CATHETER ONE (12:30)
[2016-09-17] MEDS: hydrALAzine 20 MG INJ IV PRN (12:43)
[2016-09-17 13:00] VITALS: BP 165/74; PULSE 73
--- NOTE | 2016-09-17 17:05 | DS ---
DATE OF ADMISSION: 09/11/2016 DATE OF DISCHARGE: 09/17/2016 PRIMARY CARE PHYSICIAN: Unknown. PRIMARY ONCOLOGIST: Hellen Song MD CHIEF COMPLAINT ON ADMISSION: Generalized weakness and diarrhea. LEAD ATHLETE DURING THIS ADMISSION: Hellen Song MD ADMITTING PHYSICIAN: Jesus Santana MD DISCHARGING PHYSICIAN: Jesus Santana MD HISTORY OF PRESENT ILLNESS: This is a 81-year-old female with history of non-Hodgkin lymphoma, aggr essive, according to her primary oncologist. Previous multiple episodes of urinary tract infection that delayed her latest chemotherapy session who presented to the emergency department with generali zed weakness, reported episodes of diarrhea, dehydration, decreased p.o. intake and generalized ache s and pains. HOSPITAL COURSE: The patient was admitted to a medical/surgical bed primarily for IV hydration. Af ter discussion with her oncologist, also the patient is overdue for chemotherapy and her lymphoma co uld actually be responsible for some of the B-symptoms we are seeing; therefore, the decision and e recommendation was for the patient to have a dose of chemotherapy inpatient. HOSPITAL COURSE: The patient was admitted to a medical/surgical bed on [facility] oncology hogue. She g ot hydrated for approximately 2 days, then started chemotherapy, had her doses for 48 hours. Post-c hemotherapy, she was doing fairly well on the first day; however, on the second day, she started hav ing episodes of nausea, also reporting shortness of breath. Chest x-ray consistent with pulmonary e noemy. At that time, IV fluids were discontinued. She was given doses of Lasix over a period of 2 d ays and observed. Today, she is on room air. She is doing well. She is back to baseline. She is having some underlying mild nausea, but tolerating p.o. very well. After discussion with her oncolo gist, she will be discharged home today, with a followup with Dr. Song in the next 2 to 3 days. kieran also has home health ordered. DISPOSITION: Discharge home with home health. DISCHARGE CONDITION: Stable. DISCHARGE DIET: Diabetic diet. DISCHARGE ACTIVITY: Resume home activity. Of note, the patient has been ambulating with a walker a t best. She prefers to use a wheelchair at home, and she needs to be pushed and encouraged to ambul ate. ALLERGIES: DURING THIS ADMISSION, THE PATIENT WAS NOTED TO BE ALLERGIC TO LOVENOX. SHE GOT A SHOT OF IT AND STARTED HAVING HIVES, AND WHAT SEEMS TO BE AN ALLERGIC REACTION. DISCHARGE MEDICATIONS: 1. Xanax 0.5 mg p.o. at bedtime p.r.n. anxiety. 2. Allopurinol 300 mg p.o. daily. 3. Atenolol 25 mg p.o. daily. 4. Prozac 60 mg p.o. daily. 5. Levothyroxine 175 mcg daily. 6. Omeprazole 20 mg p.o. daily. 7. Zocor 40 mg p.o. at bedtime. DISCONTINUED MEDICATIONS: Include Actos 15 mg daily. DISCHARGE DIAGNOSES: 1. Mild respiratory distress secondary to volume overload, resolved. 2. Nausea, vomiting, status post chemo, improved. 3. Non-Hodgkin lymphoma, status post chemo. 4. Leukocytosis. The patient has been on Neupogen. 5. Hyperlipidemia. 6. Hypothyroidism. 7. Anxiety disorder, major depressive disorder. 8. Hypertension. 9. Diabetes mellitus. 10. Cirrhosis and mild splenomegaly. Dictated By: JESUS DE LA ROSA/HOLLIS Conf#: [id number] DID#: [id number]
== END 2016-09-17 13:50 | disposition home health service (06) | DRG 840 ==
LOC: FTE 14:07 → MS1 16:03
PROVIDERS: ADMIT Internal Medicine; ATTEND Internal Medicine
DX: C83.31 Diffuse large B-cell lymphoma, lymph nodes of head, face, and neck (principal); J81.0 Acute pulmonary edema; R06.00 Dyspnea, unspecified; E87.8 Other disorders of electrolyte and fluid balance, not elsewhere classified; I10 Essential (primary) hypertension; E11.9 Type 2 diabetes mellitus without complications; D72.829 Elevated white blood cell count, unspecified; E86.0 Dehydration; E03.9 Hypothyroidism, unspecified; E78.5 Hyperlipidemia, unspecified; F32.9 Major depressive disorder, single episode, unspecified; K74.60 Unspecified cirrhosis of liver; R16.1 Splenomegaly, not elsewhere classified; R19.7 Diarrhea, unspecified; R11.2 Nausea with vomiting, unspecified; R51 Headache; Z85.43 Personal history of malignant neoplasm of ovary; Z87.440 Personal history of urinary (tract) infections
CPT/HCPCS: 71010; 74176; 80048; 80053; 80061; 82962; 83036; 83615; 83735; 84100; 84439; 84443; 85025; 85610; 85730; 86704; 86709; 86803; 87340; 90686; 94664; 96374; 96375; 96376; 97110; 97162; 97530; J1940; J9310; J0360; J1100; J1200; J1642; J1650; J1815; J2270; J2405; J3475; J7030; J7040